=== PATIENT | male | born 1940 | race Caucasian/White ===

== ENCOUNTER 2017-04-25 08:42 | Outpatient (CLI) | payer MEDICARE ==
--- NOTE | 2017-04-25 10:11 | CT ---
CT PULMONARY LUNG SCAN: Indication: 77-year-old male for yearly lung cancer screening evaluation. The patient is currently sm oking. Comparison: 12-06-15 FINDINGS: Nodule within the right middle lobe demonstrates density similar to that of bone, suspicious for a sm all calcified granuloma. The 5 mm pulmonary nodule within the region of the lingula is relatively sta ble. The scattered central lobular and paraseptal emphysema is similar. No new pulmonary nodules iden tified. Visualized upper abdomen is unremarkable. There is mild thoracic scoliosis and scattered dege nerative change. IMPRESSION: 1. Lung rads category 2 - benign. 2. Recommend annual low dose screening CT in one year. POS: [facility]
== END 2017-04-25 08:43 | disposition home or self-care (01) ==
LOC: CT 08:42
PROVIDERS: ATTEND Family Medicine
DX: F17.210 Nicotine dependence, cigarettes, uncomplicated (principal)
CPT/HCPCS: G0297

== ENCOUNTER 2018-01-21 12:01 | Outpatient (CLI) | payer MEDICARE ==
--- NOTE | 2018-01-21 16:13 | MRI ---
NONCONTRAST MRI LUMBAR SPINE: 01/21/2018 HISTORY: Lumbar radiculopathy. The patient complaints of low back pain with pain radiating to the left leg an d foot, with numbness and tingling. Symptoms have been present for one month. FINDINGS: There is an exophytic, 2.9 cm, increased T2 weighted signal intensity lesion at the medial aspect of the superior pole left kidney, which may represent a renal cyst, that cannot be further characterized on this exam. Further evaluation with renal sonogram is recommended. The conus medullaris is normal in appearance, terminating at the L1-L2 level. A few increased T1 and T2 weighted signal intensity foci are seen within the lower thoracic and lumba r vertebral bodies, which are nonspecific but are likely related to either focal areas of fat and/or hemangiomas. L1-L2: There is a mild disk bulge without significant narrowing of the central spinal canal. The ne ural foramina are patent. L2-L3: There is a mild broad-based disk osteophyte complex. This results in mild effacement of the ventral aspect of the thecal sac. The neural foramina are patent at this level. L3-L4: There is a broad-based disk osteophyte complex with mild facet degenerative changes. This re sults in mild effacement of the ventral aspect of the thecal sac. There is only minimal encroachment on each neural foramen. L4-L5; There is a mild broad-based disk osteophyte complex and facet hypertrophic changes. There is mild ligamentous thickening. There is effacement of the ventral aspect of the thecal sac. There is mild bilateral neural foraminal narrowing. Findings are greater on the left. L5-S1: There is loss of intervertebral disk height. There is a broad-based disk osteophyte complex and facet hypertrophic changes. There is soft tissue signal intensity seen posterior to the left asp ect of the L5 vertebral body, which measures 14 mm craniocaudal x 9 mm AP x 10 mm transverse. This m ay represent an extrusion of disk material superiorly from the L5-S1 level, although sequestered disk fragment is a possibility. This does likely result in mild mass effect and posterior displacement o f the traversing left L5 nerve root, just prior to the nerve entering the neural foramen. There is n o significant narrowing of the central spinal canal. There is mild to moderate bilateral neural fora elvira narrowing present. Moderate facet hypertrophic changes are noted. IMPRESSION: 1. Left paracentral disk extrusion versus sequestered disk fragments seen posterior to the L5 verteb ral body, just to the left of midline. Sequestered disk fragment is favored. This does appear to con tact and result in mild posterior displacement and mild mass effect on the traversing left L5 nerve r oot, just prior to the nerve root entering the neural foramen. Correlation for a left L5 radiculopat hy is suggested. 2. Mild degenerative changes seen throughout the lumbar spine, as described above. 3. Cystic lesion, superior pole, left kidney, which may represent a renal cyst, but further evaluati on with a renal sonogram is recommended. POS: [facility]
== END 2018-01-21 12:02 | disposition home or self-care (01) ==
LOC: SCSMRI 12:01
PROVIDERS: ATTEND Family Medicine
DX: M47.26 Other spondylosis with radiculopathy, lumbar region (principal); M51.16 Intervertebral disc disorders with radiculopathy, lumbar region; N28.9 Disorder of kidney and ureter, unspecified
CPT/HCPCS: 72148

== ENCOUNTER 2018-01-30 09:43 | Outpatient (CLI) | payer MEDICARE ==
--- NOTE | 2018-01-30 11:21 | ULT ---
BILATERAL RENAL ULTRASOUND COMPLETE: History: Follow up MRI for cyst left kidney. FINDINGS: The right kidney measures 11.7 x 4.8 x 6.5 cm. The left kidney measures 10.9 x 5.8 x 5.7 cm. There is coarse increased liver echogenicity consistent with nonspecific hepatic parenchymal process. There is some diffuse renal cortical thinning of the right kidney. No renal hydronephrosis. Urinary bladder is unremarkable. At least two left renal cysts, the largest measures approximately 2.7 cm. No acute perinephric process. IMPRESSION: At least two left renal cysts. No renal hydronephrosis or perinephric process. Coarse liver echogenic ity, evidence for nonspecific diffuse hepatic parenchymal process. Some generalized renal cortical th inning, slightly worse on the right side. Unremarkable but nearly empty bladder. POS: [facility]
== END 2018-01-30 09:44 | disposition home or self-care (01) ==
LOC: SCSULT 09:43
PROVIDERS: ATTEND Family Medicine
DX: N28.89 Other specified disorders of kidney and ureter (principal); N28.1 Cyst of kidney, acquired; K76.9 Liver disease, unspecified
CPT/HCPCS: 76770

== ENCOUNTER 2018-04-05 10:33 | Outpatient (CLI) | payer MEDICARE ==
--- NOTE | 2018-04-05 12:57 | RAD ---
RADIOGRAPH LUMBAR SPINE 4 VIEWS: DATE: 04/05/2018. HISTORY: A 78-year-old male with M54.16 lumbar radiculopathy. COMPARISON: No prior plain radiograph of lumbar spine. TECHNIQUE: AP view. Three lateral views in flexion, extension, and neutral. FINDINGS: There are 5 lumbar-type vertebrae. Minimal left-convex lateral curvature with apex at L3. No high-g rade scoliosis. Vertebral body heights are maintained. No major spondylolisthesis. At least modera te facet DJD at L4-5 and L5-S1. Mild disk space narrowing at L5-S1. No instability between flexion and extension. Prominent end plate marginal osteophytes at several levels. IMPRESSION: 1. Mild disk space narrowing at L5-S1. 2. No instability. JN [] POS: [facility]
== END 2018-04-05 10:34 | disposition home or self-care (01) ==
LOC: TBSIIMAG 10:33
PROVIDERS: ATTEND Surgery
DX: M54.16 Radiculopathy, lumbar region (principal); M51.37 Other intervertebral disc degeneration, lumbosacral region
CPT/HCPCS: 72110

== ENCOUNTER 2018-06-18 14:12 | Outpatient (CLI) | payer MEDICARE ==
--- NOTE | 2018-06-18 18:25 | MRI ---
MRI OF LEFT SHOULDER PERFORMED WITHOUT CONTRAST ENHANCEMENT: 06/18/18 HISTORY: Left shoulder pain for months. Patient had difficulty holding still for this examination. There are some moderate AC joint hypertrophic changes present. There is a lower grade undersurface te ar involving the infraspinatus tendon. The supraspinatus tendon is very thin in appearance. There is a moderate grade supraspinatus tendon tear. This involves more of the anterior aspect of the tendon. It involves greater than 50% of the thickness of the tendon over an approximately 7 mm segment. Ther e is undersurface retraction of some of the fibers but the bursal sided fibers remain intact. The subscapularis tendon also shows a very thin appearance to the superior aspect of the tendon with a partial undersurface tear. The biceps tendon shows tendinopathy changes of the intra-articular port ions of biceps tendon and there may be a split tear present. Very difficult to assess due to motion a rtifact. The biceps tendon does lie in a normal position within the bicipital groove. There is an irregular ap pearance to the superior labrum directly posterior to the biceps anchor consistent with a superior la bral tear. This appears to extend into the posterior superior labrum and the tear does extend into th e posterior inferior labrum where it is more evident as a tear extending all the way to the inferior labrum with a tiny paralabral cyst formation. There are arthritic changes of the glenohumeral joint space. There is no significant rotator cuff muscle atrophy present. IMPRESSION: 1. Low grade undersurface tear of the infraspinatus tendon. 2. Higher grade tear of the undersurface of the supraspinatus tendon specifically at the anterio r most attachment at the tendon. The undersurface component of the tear is greater than 50% in AP dim ension. This extends over an approximately 7 to 8 mm segment. 3. Partial undersurface tear of the subscapularis tendon, but the biceps tendon remains in josé l position. The intra-articular portion of the biceps is very tendinotic and there could be a split t ear present. There is a labral tear which begins just directly posterior to the biceps anchor and ext ends into the inferior labrum. POS: [facility]
== END 2018-06-18 14:13 | disposition home or self-care (01) ==
LOC: SCSMRI 14:12
PROVIDERS: ATTEND Orthopaedic Surgery
DX: M25.512 Pain in left shoulder (principal); M75.102 Unspecified rotator cuff tear or rupture of left shoulder, not specified as traumatic; S46.912A Strain of unspecified muscle, fascia and tendon at shoulder and upper arm level, left arm, initial encounter

== ENCOUNTER → 2018-07-11 | Day surgery (SDC) | payer MEDICARE ==
[~2018-07-11] MED LIST: ADMIXTURE FEE IVPB SCH; OCTAGAM IVPB SCH; Sodium Chloride 0.9% 20 ML ONE; diphenhydrAMINE 50 MG/ML VIAL IVP SCH
[2018-07-11 10:37] VITALS: BP 127/61; TEMP 98.5
[2018-07-11 11:31] LABS: Anion Gap 12 mmol/L (10-20); BUN (Urea Nitrogen) 26 mg/dL (8.4-25.7); Calc. Creatinine Clearance 61 mL/min (70-130); Calcium 9.7 mg/dL (7.8-10.44); Carbon Dioxide 29 mmol/L (23-31); Chloride 101 mmol/L (98-107); Estimated GFR-MDRD 42; Glucose 120 mg/dL (83-110); Potassium 4.3 mmol/L (3.5-5.1); Sodium 138 mmol/L (136-145)
== END ==
LOC: ONC/OP 09:37
PROVIDERS: ATTEND Psychiatry & Neurology Neurology
DX: G70.00 Myasthenia gravis without (acute) exacerbation (principal); Z88.1 Allergy status to other antibiotic agents
CPT/HCPCS: 80048; J1200; J1568

== ENCOUNTER 2018-07-12 10:03 | Day surgery (SDC) | payer MEDICARE ==
[~2018-07-12 10:03] MED LIST changes: -Sodium Chloride 0.9% 20 ML ONE
[2018-07-12 10:27] VITALS: BP 123/59; TEMP 98.8
[2018-07-12] MEDS ORDERED: Sodium Chloride 0.9% 30 ML ONE (10:28)
== END 2018-07-12 13:45 | disposition home or self-care (01) ==
LOC: ONC/OP 10:03
PROVIDERS: ATTEND Psychiatry & Neurology Neurology
DX: G70.00 Myasthenia gravis without (acute) exacerbation (principal); Z88.1 Allergy status to other antibiotic agents
CPT/HCPCS: 96365; 96366; 96375; J1200; J1568

== ENCOUNTER 2018-07-17 11:48 | Outpatient (CLI) | payer MEDICARE | END 2018-07-17 11:49 | disposition home or self-care (01) | LOC: CP 11:48 | PROVIDERS: ATTEND Psychiatry & Neurology Neurology | DX: G70.00 Myasthenia gravis without (acute) exacerbation (principal) | CPT/HCPCS: 94010 ==

== ENCOUNTER 2018-07-23 09:42 | Outpatient (CLI) | payer MEDICARE ==
--- NOTE | 2018-07-23 10:28 | RAD ---
CHEST TWO VIEWS: 07/23/2018 HISTORY: Dyspnea. TECHNIQUE: PA and lateral views of the chest obtained. FINDINGS: Two views of the chest demonstrate ectasia of the aorta. The lungs are well aerated. No evidence of active intrathoracic disease is seen. No evidence of effusions, pneumonia, or pneumothorax is seen. IMPRESSION: Unremarkable two views chest. POS: [facility]
== END 2018-07-23 09:43 | disposition home or self-care (01) ==
LOC: RAD 09:42
PROVIDERS: ATTEND Internal Medicine Critical Care Medicine
DX: R06.00 Dyspnea, unspecified (principal)
CPT/HCPCS: 71046

== ENCOUNTER 2018-08-05 05:48 | Day surgery (SDC) | payer MEDICARE ==
[2018-08-02 10:33] VITALS: BMI 31.8
[2018-08-05 08:29] LABS: #Eosinphils 0.1 thou/uL (0.0-0.7); #Lymphocytes 2.4 thou/uL (1.20-3.40); #Monocytes 0.9 thou/uL (0.11-0.59); #Neutrophils 5.3 thou/uL (1.40-6.50); %Basophils 0.1 % (0.0-1.0); %Eosinophils 1.1 % (0.0-10.0); %Lymphocytes 27.6 % (21.0-51.0); %Monocytes 10.3 % (0.0-10.0); %Neutrophils 60.8 % (42.0-75.0); Hemoglobin 12.2 g/dL (14.0-18.0); Mean Corpuscular HGB CONC 33.9 g/dL (32.0-36.0); Mean Corpuscular Hemoglobin 31.8 pg (27.0-31.0); Mean Corpuscular Volume 93.9 fL (78.0-98.0); Mean Platelet Volume 7.3 fL (7.4-10.4); Platelet Count 186 thou/uL (130-400); RBC Distribution Width 14.1 % (11.5-14.5); Red Blood Cell (RBC) Count 3.82 mill/uL (4.70-6.10); White Blood Cell (WBC) Count 8.8 thou/uL (4.8-10.8)
[2018-08-05 08:34] LABS: PTT 26.4 SEC (22.9-36.1); Prothrombin Time 13.4 SEC (12.0-14.7)
[2018-08-05 08:43] LABS: ALT (SGPT) 28 U/L (8-55); AST (SGOT) 20 U/L (5-34); Albumin 3.4 g/dL (3.4-4.8); Alkaline Phosphatase 44 U/L (40-150); Anion Gap 10 mmol/L (10-20); BUN (Urea Nitrogen) 28 mg/dL (8.4-25.7); Bilirubin, Total 0.7 mg/dL (0.2-1.2); Calc. Creatinine Clearance 84 mL/min (70-130); Calcium 8.8 mg/dL (7.8-10.44); Carbon Dioxide 30 mmol/L (23-31); Cardiac Risk 2.7 (Less than 4.5); Chloride 105 mmol/L (98-107); Cholesterol 150 mg/dl (< 200 Desired); Estimated GFR-MDRD 62; Globulin 2.9 g/dL (2.4-3.5); Glucose 101 mg/dL (83-110); HDL Cholesterol 55 mg/dL (>60 Neg Risk); LDL Cholesterol, Calculated 66 mg/dL; Potassium 3.7 mmol/L (3.5-5.1); Protein, Total 6.3 g/dL (5.8-8.1); Sodium 141 mmol/L (136-145); Triglycerides 145 mg/dL (Less than 150)
[2018-08-05] MEDS ORDERED: Iopamidol 370 76% 100 ML VIAL ONE (10:54)
[2018-08-05] MEDS ORDERED: Heparin 10,000 UNITS/1 ML VIAL ONE (12:31)
[2018-08-05] MEDS ORDERED: Verapamil 5 MG/2 ML VIAL ONE (12:31)
[2018-08-05] MEDS ORDERED: Nitroglycerin 100MG/250ML BOT 250 ML ONE (12:31)
--- NOTE | 2018-08-06 21:03 | EKG ---
Test Reason : PREOP Blood Pressure : / mmHG Vent. Rate : 060 BPM Atrial Rate : 060 BPM P-R Int : 192 ms QRS Dur : 122 ms QT Int : 430 ms P-R-T Axes : 020 -48 005 degrees QTc Int : 430 ms Sinus rhythm with Premature atrial complexes Left anterior fascicular block Left ventricular hypertrophy with QRS widening Abnormal ECG No previous ECGs available Confirmed by XIOMY FRANKS, DR. Arroyo ([id number]) on 08/06/2018 9:02:56 PM Referred By: MONI Confirmed By:DR. Dina STAUFFER MD
== END 2018-08-05 16:45 | disposition home or self-care (01) ==
LOC: CCL 05:48
PROVIDERS: ATTEND Internal Medicine Cardiovascular Disease
PROC: 4A023N7 Measurement of Cardiac Sampling and Pressure, Left Heart, Percutaneous Approach (ICD-10-PCS; principal; 2018-08-05)
PROC: B2111ZZ Fluoroscopy of Multiple Coronary Arteries using Low Osmolar Contrast (ICD-10-PCS; 2018-08-05)
DX: I25.10 Atherosclerotic heart disease of native coronary artery without angina pectoris (principal); I25.82 Chronic total occlusion of coronary artery; I10 Essential (primary) hypertension; E78.2 Mixed hyperlipidemia; G47.33 Obstructive sleep apnea (adult) (pediatric); G70.00 Myasthenia gravis without (acute) exacerbation; I73.9 Peripheral vascular disease, unspecified; Z87.891 Personal history of nicotine dependence; Z79.52 Long term (current) use of systemic steroids; Z79.82 Long term (current) use of aspirin; Z79.899 Other long term (current) drug therapy; Z88.1 Allergy status to other antibiotic agents
CPT/HCPCS: 36415; 80053; 80061; 85025; 85610; 85730; 93005; 93010; 93454; C1769; J1644; Q9967

== ENCOUNTER → 2018-08-12 | Day surgery (SDC) | payer MEDICARE ==
[~2018-08-12] MED LIST changes: +OCTAGAM 10% 80 GM in Admixture Fee 1 EACH IVPB SCH; +Privigen 10 GM in Admixture Fee 1 EACH IVPB SCH; +diphenhydrAMINE 25 MG in Sodium Chloride 0.9% 50 ML IVPB SCH
[2018-08-12 11:13] LABS: Anion Gap 13 mmol/L (10-20); BUN (Urea Nitrogen) 28 mg/dL (8.4-25.7); Calc. Creatinine Clearance 0 mL/min (70-130); Calcium 9.4 mg/dL (7.8-10.44); Carbon Dioxide 28 mmol/L (23-31); Chloride 102 mmol/L (98-107); Estimated GFR-MDRD 39; Glucose 109 mg/dL (83-110); Sodium 139 mmol/L (136-145)
[2018-08-12 13:42] VITALS: BP 113/55; TEMP 98.2
== END ==
LOC: ONC/OP 09:41
PROVIDERS: ATTEND Psychiatry & Neurology Neurology
DX: G70.00 Myasthenia gravis without (acute) exacerbation (principal); Z88.1 Allergy status to other antibiotic agents; Z79.52 Long term (current) use of systemic steroids; Z79.82 Long term (current) use of aspirin; Z79.899 Other long term (current) drug therapy
CPT/HCPCS: 80048; 96365; 96366; 96375; J1200; J1459; J1568; J7050

== ENCOUNTER 2018-09-12 12:39 | Inpatient (IN) | payer MEDICARE ==
[2018-09-12] MEDS ORDERED: Bacitracin Zinc Ointment 30 gm TUBE ONE (13:31)
[2018-09-12] MEDS ORDERED: Sodium Chloride 0.9% 10 ML ONE (13:31)
[2018-09-12] MEDS ORDERED: Thrombin 5000 UNITS/5 ML VIAL ONE (13:31)
[2018-09-12 13:53] LABS: #Basophils 0.1 thou/uL (0.0-0.2); #Eosinphils 0.1 thou/uL (0.0-0.7); #Lymphocytes 2.8 thou/uL (1.20-3.40); #Monocytes 0.6 thou/uL (0.11-0.59); #Neutrophils 7.4 thou/uL (1.40-6.50); %Basophils 0.9 % (0.0-1.0); %Eosinophils 0.5 % (0.0-10.0); %Lymphocytes 25.5 % (21.0-51.0); %Monocytes 5.2 % (0.0-10.0); %Neutrophils 67.9 % (42.0-75.0); Mean Corpuscular HGB CONC 33.7 g/dL (32.0-36.0); Mean Corpuscular Hemoglobin 32.4 pg (27.0-31.0); Mean Corpuscular Volume 96.1 fL (78.0-98.0); Mean Platelet Volume 8.3 fL (7.4-10.4); Platelet Count 218 thou/uL (130-400); RBC Distribution Width 13.7 % (11.5-14.5); Red Blood Cell (RBC) Count 4.02 mill/uL (4.70-6.10)
[2018-09-12 14:05] LABS: PTT 27.4 SEC (22.9-36.1); Prothrombin Time 13.3 SEC (12.0-14.7)
[2018-09-12 14:18] LABS: Anion Gap 16 mmol/L (10-20); BUN (Urea Nitrogen) 27 mg/dL (8.4-25.7); Calc. Creatinine Clearance 53 mL/min (70-130); Calcium 9.5 mg/dL (7.8-10.44); Carbon Dioxide 25 mmol/L (23-31); Chloride 100 mmol/L (98-107); Estimated GFR-MDRD 36; Glucose 112 mg/dL (83-110); Potassium 4.9 mmol/L (3.5-5.1); Sodium 136 mmol/L (136-145)
[2018-09-12] MEDS ORDERED: SUGAMMADEX SODIUM 500 MG/5 ML VIAL ONE (14:42)
[2018-09-12] MEDS ORDERED: Dexamethasone 20 MG/5 ML VIAL ONE (14:45)
[2018-09-12] MEDS ORDERED: ePHEDrine 50 MG/ML VIAL ONE (14:45)
[2018-09-12] MEDS ORDERED: Rocuronium Bromide 10 MG/ML (10ML VIAL) ONE (14:45)
[2018-09-12] MEDS ORDERED: PROPOFOL 200 MG/20 ML VIAL ONE (14:45)
[2018-09-12] MEDS ORDERED: Ondansetron PF 4 MG/2 ML Vial ONE (14:45)
[2018-09-12] MEDS ORDERED: PHENYLEPHRINE-NS 100 MCG/ML 10 ML SYRINGE ONE (14:45)
[2018-09-12] MEDS ORDERED: Lidocaine 1% PF 5 ML VIAL ONE (14:45)
[2018-09-12] MEDS ORDERED: Fentanyl 100 MCG/2 ML VIAL ONE ×2 (14:54→17:33)
[2018-09-12] MEDS ORDERED: ePHEDrine/0.9% NaCl/PF SYRINGE 50 mg/10 ml ONE (15:28)
[2018-09-12] MEDS ORDERED: PACU-Morphine 4MG/ML VIAL SLOW IVP PRN (16:54)
[2018-09-12] MEDS ORDERED: Morphine Sulfate 2 MG/ML SYRINGE SLOW IVP PRN (16:54)
[2018-09-12] MEDS ORDERED: Promethazine HCl 25 MG/ML VIAL IM PRN (16:54)
[2018-09-12] MEDS ORDERED: HYDROmorphone 2 MG/ML VIAL SLOW IVP PRN (16:54)
[2018-09-12] MEDS ORDERED: Promethazine HCl 25 MG/ML VIAL SLOW IVP PRN (16:54)
[2018-09-12] MEDS ORDERED: Ondansetron HCl/PF 4 MG/2 ML Vial IVP PRN (16:54)
[2018-09-12] MEDS ORDERED: Acetaminophen 325 MG TAB PO PRN (17:59)
[2018-09-12] MEDS ORDERED: Bisacodyl 10 MG SUPP PR PRN (17:59)
[2018-09-12] MEDS ORDERED: traMADol HCl 50 MG TAB PO PRN (17:59)
[2018-09-12] MEDS ORDERED: Mag-Al 1200 mg/1200 mg/30 ML UDCUP PO PRN (17:59)
[2018-09-12] MEDS ORDERED: Milk Of Magnesia 30 ML UDCUP PO PRN (17:59)
[2018-09-12] MEDS ORDERED: Acetaminophen/Codeine 30-300mg Tablet PO PRN (17:59)
[2018-09-12] MEDS ORDERED: Morphine 2 MG/ML SYRINGE SLOW IVP PRN (17:59)
[2018-09-12] MEDS ORDERED: Fleet Enema 133 ML BOT PR PRN (17:59)
[2018-09-12] MEDS ORDERED: Baclofen 10 MG TAB PO PRN (18:02)
[2018-09-12] MEDS ORDERED: Amlodipine 5 MG TAB PO PRN (18:02)
[2018-09-12 20:27] VITALS: BMI 31.6
[2018-09-12] MEDS: Atorvastatin Calcium 20 MG TAB PO SCH (21:45)
[2018-09-12] MEDS: Sodium Chloride 0.9% 1,000 ML IV SCH (21:45)
[2018-09-12] MEDS: CEFAZOLIN 2 GM in Premix Bag 1 BAG IVPB SCH (21:45)
[2018-09-12] MEDS: Gabapentin 300 MG CAP PO SCH (21:45)
--- NOTE | 2018-09-13 00:59 | HP ---
PRIMARY CARE DOCTOR: Dr. Danna Whitlock. CODE STATUS: Full code. TIME OF EVALUATION: 09:55 p.m. This is a consultation requested by Neurosurgery for medical management. CHIEF COMPLAINT: Lower extremity pain. HISTORY OF PRESENT ILLNESS: This is a 78-year-old male patient with past medical history of multiple comorbidities, including hyperlipidemia, hypertension, PVD, COTY, chronic venous insufficiency, myasthenia gravis. The patient came to the hospital for surgery due to spinal stenosis and radiculopathy. The patient had surgery today at 2:00 p.m. Seems like has tolerated surgery without complications and is resting comfortable during my examination. We have been consulted for assisting with medical management. As noted, the patient has history of myasthenia gravis and is on prednisone 10 mg daily. REVIEW OF SYSTEMS: CONSTITUTIONAL: No fever, chills, or generalized weakness. RESPIRATORY: No cough, sputum production, or shortness of breath. CARDIOVASCULAR: No chest pain or palpitations. GASTROINTESTINAL: No nausea, no vomiting, diarrhea, or abdominal pain. CENTRAL NERVOUS SYSTEM: The patient had laminectomy, is being able to mobilize, still having some lower back pain. No headache or feeling lightheaded. GENITOURINARY: No burning on urination. EXTREMITIES: No leg swelling. All other systems were reviewed and negative except for the findings mentioned above. PAST MEDICAL HISTORY: As mentioned in HPI. PAST SURGICAL HISTORY: Hemorrhoid removal, cataract removal, left GSV venous closure in 2011. FAMILY HISTORY: Mother with cardiovascular disease. Father with coronary artery disease. MEDICATIONS: 1. Prednisone. 2. Pantoprazole. 3. Azelastine. 4. Calcium carbonate. 5. Gabapentin. 6. Simvastatin. 7. Aspirin. 8. Pyridostigmine. 9. Hydrochlorothiazide. 10. Isosorbide mononitrate. 11. Lisinopril. 12. Hydralazine. 13. Amlodipine. 14. Citalopram. PHYSICAL EXAMINATION: VITAL SIGNS: On presentation, blood pressure 137/93 with MAP 107, heart rate 67, respiratory rate was 17, oxygen saturation was 95% and a PVC of 8. GENERAL APPEARANCE: The patient is alert, oriented, not in acute distress. HEENT: Reported some pain in head. Eyes, normal conjunctiva. Moist oral mucosa. Anicteric. No JVD. RESPIRATORY: Bilateral air entry. No rales. No wheezing. Symmetric expansion. CARDIOVASCULAR: Normal rate, regular rhythm. No murmurs. No gallop. No edema. ABDOMEN: Soft. Normal bowel sounds. MUSCULOSKELETAL: Baseline range of motion and strength. No tenderness. SKIN: Warm, intact. No pallor. No rash. No redness. Peripheral pulses are present. Capillary refill seems to be intact. NEUROLOGIC: No evidence of any new focal weakness. Baseline speech. Cranial nerves seem to intact. The patient seems to be recovering well from the low back surgery. PSYCHIATRIC: The patient is in good mood. No anxiety. Optimal judgment. LABORATORY DATA: Reviewed. The patient has white count 11, hemoglobin 13, MCV 96, platelet count 218. Coagulation; PT 13.3, INR 1.0, and PTT 27.4. Chemistry; sodium 136, potassium 4.9, chloride 100, carbon dioxide 25, anion gap 16, BUN 27, creatinine 1.84, GFR 36, glucose 112, calcium 9.5. ASSESSMENT AND PLAN: The patient will be placed in the hospital with following medical problems; 1. Laminectomy done today at 2:00 p.m. Surgery was done today, well tolerated. Neurosurgery is following this problem. 2. Acute kidney injury. The patient has elevation in BUN and creatinine. We will add some hydration. We will discontinue lisinopril for now. This will need to be reconciled in the morning for any further adjustment in treatment. If not improvement, would recommend getting consultation with Nephro. 3. Deep venous thrombosis prophylaxis, to be managed as per Surgery. 4. History of myasthenia gravis. Patient's home medications were reconciled. Continue prednisone for now. He is currently at 10 mg a day p.o. 5. History of hypertension. This is chronic, stable, lisinopril is on hold due to acute kidney injury. Please monitor and could add different medication if blood pressure becomes uncontrolled. Job ID: [id number]
[2018-09-13] MEDS: CEFAZOLIN 2 GM in Premix Bag 1 BAG IVPB SCH (06:08)
[2018-09-13] MEDS: Calcium Carbonate 600 MG TAB PO SCH (08:12)
[2018-09-13] MEDS: hydrALAZINE 25 MG TAB PO SCH (08:12)
[2018-09-13] MEDS: Pyridostigmine Bromide IR 60 MG TAB PO SCH (08:13)
[2018-09-13] MEDS: Hydrochlorothiazide 25 MG TAB PO SCH (08:13)
[2018-09-13] MEDS: Citalopram 20 MG TAB PO SCH (08:13)
[2018-09-13] MEDS: predniSONE 20 MG TAB PO SCH (08:13)
[2018-09-13] MEDS: Gabapentin 300 MG CAP PO SCH ×3 (08:13→21:01)
[2018-09-13] MEDS: HYDROcodone/Acetaminophen 7.5/325 mg Tablet PO PRN ×3 (08:15→20:59)
[2018-09-13] MEDS ORDERED: Lisinopril 20 MG TAB PO SCH (09:00)
[2018-09-13 09:59] LABS: Anion Gap 16 mmol/L (10-20); BUN (Urea Nitrogen) 24 mg/dL (8.4-25.7); Calc. Creatinine Clearance 62 mL/min (70-130); Calcium 9.1 mg/dL (7.8-10.44); Carbon Dioxide 25 mmol/L (23-31); Chloride 100 mmol/L (98-107); Estimated GFR-MDRD 44; Glucose 137 mg/dL (83-110); Potassium 3.8 mmol/L (3.5-5.1); Sodium 137 mmol/L (136-145)
--- NOTE | 2018-09-13 10:31 | PRG ---
DATE OF SERVICE: SUBJECTIVE: Mr. Wyman is postoperative day 1 from lumbar decompression and diskectomy with far-lateral approach as well. He has had resolution in his leg pain and is doing well with good strength. He has had no issues in the ICU related to his myasthenia gravis. We will plan for transfer to the floor and he lives at home with his who was not able to take care of him postoperatively, so we will get inpatient rehab to see him. Job ID: [id number]
--- NOTE | 2018-09-13 12:07 | PDOC.PN ---
- Subjective Encounter Start Date: 09/13/18 Encounter Start Time: 09:45 Mr Wyman was seen today in follow-up of medical management following Lumbar Laminectomy. He does not have any complaints. He denies chest pain or shortness of breath. - Objective MAR Reviewed: Yes Vital Signs & Weight: Vital Signs (12 hours) Temp Pulse Ox 09/13/18 07:37 96 09/13/18 04:00 98.2 F Weight Weight 240 lb 4.862 oz Most Recent Monitor Data Heart Rate from ECG 85 NIBP 130/89 NIBP BP-Mean 102 Respiration from ECG 17 SpO2 93 I&O: 09/12/18 09/13/18 09/14/18 06:59 06:59 06:59 Intake Total 1706 580 Output Total 500 800 Balance 1206 -220 Result Diagrams: 09/12/18 13:41 09/13/18 09:13 Phys Exam - Physical Examination HEENT: PERRLA Respiratory: no wheezing, no rales, no rhonchi Cardiovascular: RRR, no significant murmur, no rub Gastrointestinal: soft, non-tender, no distention, positive bowel sounds Musculoskeletal: pulses present, edema present trace edema Dx/Plan (1) Myasthenia gravis Code(s): G70.00 - MYASTHENIA GRAVIS WITHOUT (ACUTE) EXACERBATION Status: Acute (2) Hypertension Code(s): I10 - ESSENTIAL (PRIMARY) HYPERTENSION Status: Acute (3) S/P lumbar laminectomy Code(s): Z98.890 - OTHER SPECIFIED POSTPROCEDURAL STATES Status: Acute (4) Obstructive sleep apnea Code(s): G47.33 - OBSTRUCTIVE SLEEP APNEA (ADULT) (PEDIATRIC) Status: Acute - Plan * Myesthenia Gravis- stable- continue Prednisone and Pyridostigmine * HTN- blood pressure is stable * COTY- nocturnal CPAP as needed * Continue PT/OT as per NS.
--- NOTE | 2018-09-13 16:43 | OP ---
DATE OF PROCEDURE: 09/12/2018 OPERATING ROOM: OR 11. WOUND CLASSIFICATION: Type 1 wound. TRACTOR MECHANIC HELPER: Elijah Becerra PA-C PREPROCEDURE DIAGNOSIS: Low back and leg pain with lumbar disk extrusion with lumbar radiculopathy. POSTPROCEDURE DIAGNOSIS: Low back and leg pain with lumbar disk extrusion with lumbar radiculopathy. PROCEDURES PERFORMED: 1. Left L5-S1 hemilaminotomy, foraminotomy, and diskectomy. 2. Right L5-S1 trans-facet approach for decompression of the right L5 nerve root with right L5-S1 trans-facet diskectomy. 3. Use of operative microscope for microdissection. DESCRIPTION OF PROCEDURE: After informed consent was obtained from the patient, the patient was positioned prone. Proper patient, pause, and identification were carried out. He was placed under excellent general endotracheal anesthesia and the L5-S1 linear tiffani was made over this region. This area was sterilely cleansed, prepared, and draped. Proper patient, pause, and identification were carried out. The wound was then opened with a combination of sharp, monopolar, and blunt dissection. The L5-S1 dorsal spines and lamina were exposed. Left L5-S1 hemilaminotomy, foraminotomy, and diskectomy was then performed with use of the microscope for microdissection. We then turned our attention to identification of the right L5-S1 segment and a trans-facet approach was performed to allow for decompression of the lateral and far-lateral regions of the L5 nerve root with diskectomy. Copious irrigation occurred throughout as did maximizing hemostasis. The wound was then closed in anatomic layers following sprinkling of vancomycin powder. The patient emerged from anesthesia. Job ID: [id number]
[2018-09-13] MEDS ORDERED: Azelastine 137 MCG/Spray 30 ML NS PRN (17:20)
[2018-09-13] MEDS: Sodium Chloride 0.9% 1,000 ML IV SCH ×2 (18:02→23:18)
[2018-09-13] MEDS: Atorvastatin Calcium 20 MG TAB PO SCH (21:01)
[2018-09-14] MEDS: HYDROcodone/Acetaminophen 7.5/325 mg Tablet PO PRN ×4 (03:01→20:09)
[2018-09-14] MEDS: Gabapentin 300 MG CAP PO SCH ×3 (08:57→20:12)
[2018-09-14] MEDS: Calcium Carbonate 600 MG TAB PO SCH (08:58)
[2018-09-14] MEDS: Citalopram 20 MG TAB PO SCH (08:58)
[2018-09-14] MEDS: hydrALAZINE 25 MG TAB PO SCH (08:58)
[2018-09-14] MEDS: predniSONE 20 MG TAB PO SCH (08:59)
[2018-09-14] MEDS: Hydrochlorothiazide 25 MG TAB PO SCH (08:59)
[2018-09-14] MEDS: Pyridostigmine Bromide IR 60 MG TAB PO SCH (09:19)
[2018-09-14] MEDS: Sodium Chloride 0.9% 1,000 ML IV SCH (10:49)
--- NOTE | 2018-09-14 12:03 | PRG ---
DATE OF SERVICE: 09/14/2018 Mr. Wyman is a 78-year-old. He is on his second postoperative day following lumbar laminectomy with Dr. Cali. The initial plan inpatient rehab given his myasthenic symptoms. However, this morning, he states as his does that they are both motivated to get him home to have adequate home setup for reducing difficulties in his postoperative state. He has minimal pain at the moment and just been somewhat slow to mobilize. On the first day yesterday, though he walks 200 feet and the plan today is to try to mobilize the laps around the surgical floor to see if he can tolerate this well and potentially discharge home as early as today with home health services providing PT. Also discussed possibility of staying one more night for the purpose of continued to improve mobility and discharging tomorrow and uncomfortable with either of those plans . Job ID: [id number]
--- NOTE | 2018-09-14 15:42 | PDOC.PN ---
- Subjective Encounter Start Date: 09/14/18 Encounter Start Time: 11:45 Mr. Wyman was seen today in follow-up of medical management following Lumbar Laminectomy. He does not have any complaints. He has been up walking without difficulty. - Objective MAR Reviewed: Yes Vital Signs & Weight: Vital Signs (12 hours) Temp Pulse Resp BP BP Pulse Ox 09/14/18 08:58 80 112/71 09/14/18 08:15 98.3 F 80 14 112/71 95 09/14/18 07:20 98.3 F 80 14 112/71 95 09/14/18 04:36 97.9 F 68 18 132/73 96 Weight Weight 240 lb 4.862 oz Most Recent Monitor Data Heart Rate from ECG 85 NIBP 130/89 NIBP BP-Mean 102 Respiration from ECG 17 SpO2 93 I&O: 09/13/18 09/14/18 09/15/18 06:59 06:59 06:59 Intake Total 1706 1480 Output Total 500 800 Balance 1206 680 Result Diagrams: 09/12/18 13:41 09/13/18 09:13 Phys Exam - Physical Examination HEENT: PERRLA Respiratory: no wheezing, no rales, no rhonchi, clear to auscultation bilateral Cardiovascular: RRR, no significant murmur, no rub Gastrointestinal: soft, non-tender, no distention, positive bowel sounds Musculoskeletal: no edema, pulses present Dx/Plan (1) Myasthenia gravis Code(s): G70.00 - MYASTHENIA GRAVIS WITHOUT (ACUTE) EXACERBATION Status: Acute (2) Hypertension Code(s): I10 - ESSENTIAL (PRIMARY) HYPERTENSION Status: Acute (3) S/P lumbar laminectomy Code(s): Z98.890 - OTHER SPECIFIED POSTPROCEDURAL STATES Status: Acute (4) Obstructive sleep apnea Code(s): G47.33 - OBSTRUCTIVE SLEEP APNEA (ADULT) (PEDIATRIC) Status: Acute - Plan * Myesthenia gravis- stable * HTN- blood pressure- stable * CAD- stable * Continue PT/OT * possible home tomorrow.
[2018-09-14] MEDS: Atorvastatin Calcium 20 MG TAB PO SCH (20:11)
--- NOTE | 2018-09-14 21:19 | PRG ---
DATE OF SERVICE: 09/14/2018 SUBJECTIVE: Mr. Wyman is hospital day 2 from lumbar decompression and diskectomy. He is doing well. He has been mobilizing in the hallways, in fact I found him in the hallways walking with a walker upon my visit. His incision is clean, dry, and intact. They have plans to discharge home tomorrow morning with home health in lieu of going to rehab. Job ID: [id number]
[2018-09-15] MEDS: Sodium Chloride 0.9% 1,000 ML IV SCH ×2 (02:37→09:43)
[2018-09-15] MEDS: HYDROcodone/Acetaminophen 7.5/325 mg Tablet PO PRN (03:47)
[2018-09-15] MEDS ORDERED: hydrALAZINE 20 MG/ML VIAL SLOW IVP PRN (04:18)
--- NOTE | 2018-09-15 07:11 | PRG ---
DATE OF SERVICE: 09/15/2018 Mr. Wyman, this morning, is doing very well. He ambulated a great deal in the hallways yesterday and is ready to go home this morning. He has minimal complaints of back pain, but will need to just follow up with Dr. Cali as planned at his outpatient followup. Job ID: [id number]
[2018-09-15] MEDS: Gabapentin 300 MG CAP PO SCH (09:35)
[2018-09-15] MEDS: Citalopram 20 MG TAB PO SCH (09:35)
[2018-09-15] MEDS: Hydrochlorothiazide 25 MG TAB PO SCH (09:35)
[2018-09-15] MEDS: Calcium Carbonate 600 MG TAB PO SCH (09:37)
[2018-09-15] MEDS: predniSONE 20 MG TAB PO SCH (09:37)
[2018-09-15] MEDS: hydrALAZINE 25 MG TAB PO SCH (09:42)
[2018-09-15 11:54] VITALS: BP 124/72; TEMP 98.2
[2018-09-15] MEDS: Pyridostigmine Bromide IR 60 MG TAB PO SCH (12:54)
--- NOTE | 2018-09-15 22:52 | DIS ---
DATE OF ADMISSION: 09/12/2018 DATE OF DISCHARGE: 09/15/2018 PRIMARY CARE PHYSICIAN: Dr. Danna Whitlock. DISCHARGE DISPOSITION: Home. PRIMARY DISCHARGE DIAGNOSES: 1. Lumbar radiculopathy. 2. Status post lumbar laminectomy. 3. Myasthenia gravis. 4. Hyperlipidemia. 5. Hypertension. 6. Obstructive sleep apnea. 7. Peripheral vascular disease. DISCHARGE MEDICATIONS: 1. Simvastatin 40 mg at bedtime. 2. Pyridostigmine 60 mg twice a day. 3. Prednisone 20 mg daily. 4. Pantoprazole 40 mg daily. 5. Lisinopril 40 mg daily. 6. Imdur 30 mg daily. 7. Hydrochlorothiazide 25 mg daily. 8. Hydralazine 50 mg t.i.d. 9. Gabapentin 600 mg at bedtime and mg during the day. 10. Celexa 20 mg daily. 11. Calcium carbonate 600 mg daily. 12. Baclofen 10 mg as needed. 13. Azelastine nasal spray daily. 14. Aspirin 81 mg daily. 15. Norvasc 5 mg a day. PROCEDURES DONE: During the admission, the patient had a left L5-S1 hemilaminectomy, foraminotomy, and diskectomy and a right L5-S1 transfacet decompression. CODE STATUS: Full code. ALLERGIES: LEVAQUIN. HOSPITAL COURSE: Mr. Wyman is a pleasant 78-year-old gentleman who has a history of myasthenia gravis, hypertension, and hyperlipidemia, who had chronic low back pain which was not relieved with conservative measures. He was admitted by the Neurosurgery Service for an elective lumbar laminectomy. He underwent the procedure. He had an uneventful postoperative course. The Hospitalist Service was consulted for medical management. Again, he did not have any complaints during his hospital stay and was able to be discharged home with close outpatient followup. Job ID: [id number]
== END 2018-09-15 12:45 | disposition home or self-care (01) | DRG 519 ==
LOC: SDC 12:39 → CCU 17:59 → OBSVTOIN 17:59 → INTOOBSV 17:59 → SURG B 09-13 11:00
PROVIDERS: ADMIT Surgery; ATTEND Surgery
PROC: 0SB20ZZ Excision of Lumbar Vertebral Disc, Open Approach (ICD-10-PCS; principal; 2018-09-12)
PROC: 01NB0ZZ Release Lumbar Nerve, Open Approach (ICD-10-PCS; 2018-09-12)
DX: M51.16 Intervertebral disc disorders with radiculopathy, lumbar region (principal); N17.9 Acute kidney failure, unspecified; I87.2 Venous insufficiency (chronic) (peripheral); M48.061 Spinal stenosis, lumbar region without neurogenic claudication; E78.5 Hyperlipidemia, unspecified; I10 Essential (primary) hypertension; I73.9 Peripheral vascular disease, unspecified; I25.10 Atherosclerotic heart disease of native coronary artery without angina pectoris; G47.33 Obstructive sleep apnea (adult) (pediatric); G70.00 Myasthenia gravis without (acute) exacerbation; Z79.52 Long term (current) use of systemic steroids; Z79.82 Long term (current) use of aspirin; Z79.899 Other long term (current) drug therapy
CPT/HCPCS: 36415; 76000; 80048; 85025; 85610; 85730; J0131; J0360; J0690; J1100; J2001; J2405; J2704; J3010; J3370; J3490; J7512

== ENCOUNTER 2018-09-22 00:17 | Observation (INO) | payer MEDICARE ==
[2018-09-22] MEDS ORDERED: Furosemide 20 MG/2 ML VIAL ONE (01:03)
[2018-09-22 02:01] LABS: Thyroid Stimulating Hormone 2.4238 uIU/mL (0.35-4.94)
[2018-09-22 02:16] LABS: Troponin I 0.017 ng/mL (< 0.028)
[2018-09-22 03:04] VITALS: BMI 32.6
[2018-09-22 04:23] LABS: Free T4 (Free Thyroxine) 1.08 ng/dL (0.70-1.48)
[2018-09-22 05:32] LABS: Troponin I 0.018 ng/mL (< 0.028)
[2018-09-22 08:09] LABS: Troponin I 0.024 ng/mL (< 0.028)
[2018-09-22 11:08] LABS: #Eosinphils 0.1 thou/uL (0.0-0.7); #Lymphocytes 1.9 thou/uL (1.20-3.40); #Monocytes 0.7 thou/uL (0.11-0.59); #Neutrophils 4.8 thou/uL (1.40-6.50); %Basophils 0.3 % (0.0-1.0); %Eosinophils 1.6 % (0.0-10.0); %Lymphocytes 25.2 % (21.0-51.0); %Monocytes 9.5 % (0.0-10.0); %Neutrophils 63.3 % (42.0-75.0); Hemoglobin 11.3 g/dL (14.0-18.0); Mean Corpuscular HGB CONC 33.1 g/dL (32.0-36.0); Mean Corpuscular Hemoglobin 32.4 pg (27.0-31.0); Mean Corpuscular Volume 97.8 fL (78.0-98.0); Platelet Count 234 thou/uL (130-400); RBC Distribution Width 13.3 % (11.5-14.5); White Blood Cell (WBC) Count 7.7 thou/uL (4.8-10.8)
[2018-09-22 11:24] LABS: Lactic Acid 2.7 mmol/L (0.5-2.2)
[2018-09-22 11:28] LABS: ALT (SGPT) 19 U/L (8-55); AST (SGOT) 20 U/L (5-34); Albumin 3.8 g/dL (3.4-4.8); Alkaline Phosphatase 43 U/L (40-150); Anion Gap 15 mmol/L (10-20); BUN (Urea Nitrogen) 17 mg/dL (8.4-25.7); Bilirubin, Total 0.5 mg/dL (0.2-1.2); Calc. Creatinine Clearance 68 mL/min (70-130); Calcium 9.6 mg/dL (7.8-10.44); Carbon Dioxide 28 mmol/L (23-31); Chloride 99 mmol/L (98-107); Estimated GFR-MDRD 48; Globulin 2.6 g/dL (2.4-3.5); Glucose 136 mg/dL (83-110); Magnesium 1.8 mg/dL (1.6-2.6); Potassium 3.7 mmol/L (3.5-5.1); Protein, Total 6.4 g/dL (5.8-8.1); Sodium 138 mmol/L (136-145)
[2018-09-22] MEDS ORDERED: hydrALAZINE 20 MG/ML VIAL SLOW IVP PRN (11:52)
[2018-09-22] MEDS ORDERED: Mycophenolate 250 MG CAP PO SCH (12:00)
[2018-09-22] MEDS ORDERED: Amlodipine 5 MG TAB PO SCH (12:00)
[2018-09-22] MEDS ORDERED: Gabapentin 300 MG CAP PO SCH (12:00)
[2018-09-22] MEDS ORDERED: Pyridostigmine Bromide IR 60 MG TAB PO SCH (12:00)
[2018-09-22 13:22] LABS: Bilirubin Negative (Negative); Blood, Urine Negative (Negative); Clarity CLEAR (Clear); Glucose, Urine (Dipstick) Negative (Negative); Leukocyte Negative (Negative); Nitrite Negative (Negative); Protein, Urine (Dipstick) Negative (Neg-Trace); Specific Gravity, Urine 1.006 (1.002-1.036); Urobilinogen 0.2 mg/dL (0.2-1.0)
--- NOTE | 2018-09-22 14:05 | HP ---
This is ALEJO De Jesus dictating a report for Pranay Torrez MD. CHIEF COMPLAINT: Difficulty breathing, lasting 15 minutes, and hypertension. HISTORY OF PRESENT ILLNESS: Mr. Wyman is a pleasant 78-year-old man, who was transferred here from [place] after presenting with an episode of difficulty breathing, which the states lasted about 15 minutes. The patient was lying down and has been lying flat on his left side due to recent laminectomy on 09/15/2018. He states he suddenly felt like he could not catch his breath. Reports feeling overall puffy and swollen on his face and neck and attributes this to the chronic steroids he was most recently on and tapered off for his myasthenia gravis. He states his neck felt as if it was weighing down on him. His states he appeared purple in color, and once EMS arrived within 15 minutes, his breathing had improved. His blood pressure was elevated in the low 200 systolic; however, once breathing improved, his blood pressure was rechecked and was normal in the 160s systolic. His had called Dr. Willson, who is out of town, and spoke to Dr. Schwarz, who advised to monitor and seek medical attention if any worsening or recurring symptoms. The patient did go ahead and come in for assessment at [place] [facility]. He underwent imaging with a chest x-ray, which showed a right basilar opacity, concerning for pneumonia as well as cardiomegaly. He was felt to have normal pulmonary vasculature with no pneumothorax or pleural effusion. Laboratory studies were done, showing a mildly elevated white blood count of 11.2. His lactic acid was normal at 0.8. The BNP mildly elevated at 144. The D-dimer was elevated at 1.05, therefore, prompting a CT angiogram of the chest. This revealed no evidence of PE and scattered areas of volume loss terminating in the lower lungs. He had an exophytic left renal hypodensity, incompletely characterized as a cyst. Nonemergent renal ultrasound recommended. The patient was given antibiotics for pneumonia with Zosyn and vancomycin. He has remained afebrile and has been transferred to [place] for further management. At this present time, the patient states he is back at his normal baseline and has not had any further recurring episodes of shortness of breath. REVIEW OF SYSTEMS: He denies having any fevers, chills, or sweats. He denies having any headaches or dizziness. He does report having pain in his back, associated with the recent surgery. He has not had any redness, swelling, or drainage from the incision. No urinary symptoms. No bowel changes. No chest pain or palpitations. He has had lower extremity swelling, which his states has been ongoing and somewhat attributed to his chronic steroid use. He does have redness and puffiness around his face as well as increased neck girth, again per associated with chronic steroid use. The patient denies having any swelling of his tongue or difficulty swallowing. He has not had any rash or hives. No other complaints. PAST MEDICAL HISTORY: 1. Myasthenia gravis. 2. Actinic keratosis. 3. Allergic rhinitis. 4. Basal cell cancer of the arm, neck, and some of cheek. 5. Precancerous lesion to the left lateral tongue, previous excision. 6. Hypertension. 7. GERD. 8. Hyperlipidemia. 9. Seborrheic keratosis. 10. Diverticulosis. 11. Colon polyps. PAST SURGICAL HISTORY: 1. Bilateral cataracts. 2. Excision of several basal cell carcinomas. 3. Colostomy. 4. Hemorrhoid surgery. SOCIAL HISTORY: The patient denies any heavy alcohol use. He does smoke. Denies any illicit drug use. ALLERGIES: LEVAQUIN. CURRENT MEDICATIONS: 1. Tylenol No. 3. 2. Tizanidine. 3. CellCept. 4. Norvasc. 5. Zocor. 6. Mestinon. 7. Pantoprazole. 8. Lisinopril. 9. Imdur ER. 10. Hydrochlorothiazide. 11. Neurontin. 12. Calcium. 13. Aspirin. 14. Hydralazine. PHYSICAL EXAMINATION: GENERAL: The patient appears overweight, well developed, and in no acute distress. SKIN: No rash or jaundice. A well-healing incision in the lower lumbar spine with sutures in place. No surrounding erythema, swelling, discharge or bleeding. He does have puffiness with slight flushing of his face. Oropharynx is clear. No tongue swelling. He does have a white plaque on the left lateral tongue, recurrent, known precancerous lesion. HEENT: Normocephalic and atraumatic. Pupils are equal, round, and reactive to light. Sclerae are without icterus. Oropharynx, as mentioned notable for white plaque on the left lateral tongue without any bleeding. NECK: Supple. LUNGS: Clear to auscultation bilaterally without any wheezes, rales, or rhonchi. CARDIAC: Regular rate and rhythm. ABDOMEN: Obese, soft, nontender, and nondistended. Normoactive bowel sounds present. EXTREMITIES: Notable for +2 pitting edema in the lower legs. No calf pain or tenderness. NEUROLOGIC: Alert and oriented x3 INVESTIGATIONS: As mentioned above in HPI. IMPRESSION AND PLAN: Mr. Wyman is a pleasant 78-year-old man, who is being admitted for management of the followin. Shortness of breath. Brief episode, lasting 15 minutes, potentially associated with position and generous tissue of the neck, which he states often feels as if it is weighing him down when he is lying flat on his back ever since he underwent his spinal surgery. He does not seem to have any symptoms concerning for allergic reaction. However, we will continue to monitor as he has had changes with medications several days ago. Recently weaned off steroids and started on CellCept. Chest x-ray with findings concerning for possible pneumonia; however, this was not evident on CT chest. He is afebrile without a cough and normal white cell count. He does have a mildly elevated lactic acid, which we will continue to monitor. He received Zosyn and vancomycin in [place]; however, we will hold antibiotics for now. Troponins negative x3. Breathing episode could potentially be associated with his underlying myasthenia gravis. The patient awaiting review by Dr. Holcomb. 2. Lactic acidosis. Elevated lactic acid with all other laboratory studies unremarkable. We will monitor. Urinalysis requested. No signs of infection involving his wound. Continue to monitor. 3. Lower leg edema. The patient with mildly elevated BNP of 144. No evidence of pulmonary edema. Lungs clear. Hydrochlorothiazide reconciled. We will continue to monitor. Echo requested. 4. Chronic kidney disease. The patient seems to be at baseline. We will continue to monitor renal function. 5. Gastrointestinal prophylaxis. 6. Deep venous thrombosis prophylaxis with mechanical sequential compression devices. 7. Full code status. The surrogate decision maker is his , Emily Wyman. The patient's case was discussed with Dr. Torrez, who agrees with plan of care as described above. Job ID: [id number]
--- NOTE | 2018-09-22 20:35 | CON ---
DATE OF CONSULTATION: 09/22/2018 CONSULTING PHYSICIAN: Hospitalist Service. 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 He had recently underwent lumbar surgery by Dr. Cali last week. He was sitting at the house and has been having a feeling of choking due to the tissues of his neck, cutting off his airway when he puts his head in certain positions. He apparently had a brief episode of cyanosis. His reported that his color looked quite purple. EMS was called. At the time they arrived, reportedly his saturations were normal on room air. He was brought in and had a chest x-ray done, which suggested some right basilar infiltrate. A CT of the chest did not show any evidence of a pulmonary embolus. He is without any complaints of difficulty chewing or swallowing. Denies any weakness of the extremities. He has some intermittent double vision. PHYSICAL EXAMINATION: On exam, there is some intermittent exotropia noted in the right eye. Eyelid closure is good. Neck strength is quite strong. He has good peripheral strength in both arms and legs. Speech is clear. I do not think the myasthenia could explain brief cyanotic. We will have a pulmonary function test done to check his negative inspiratory flow. would like to see Dr. Molina in followup to have him weigh in on the event. Job ID: [id number]
[2018-09-22] MEDS: Lisinopril 20 MG TAB PO SCH (20:58)
[2018-09-22] MEDS: Gabapentin 300 MG CAP PO SCH (20:58)
[2018-09-22] MEDS: Mycophenolate 250 MG CAP PO SCH (20:58)
[2018-09-22] MEDS: Pyridostigmine Bromide IR 60 MG TAB PO SCH (20:58)
[2018-09-22] MEDS: Atorvastatin Calcium 20 MG TAB PO SCH (20:59)
[2018-09-22] MEDS ORDERED: tiZANidine HCl 4 MG TAB PO PRN (21:00)
[2018-09-22] MEDS: Acetaminophen/Codeine 30-300mg Tablet PO PRN (22:23)
[2018-09-23] MEDS: Amlodipine 5 MG TAB PO SCH (08:49)
[2018-09-23] MEDS: Aspirin 81 mg Enteric Coated Tablet PO SCH (08:50)
[2018-09-23] MEDS: Gabapentin 300 MG CAP PO SCH ×2 (08:51→21:02)
[2018-09-23] MEDS: Mycophenolate 250 MG CAP PO SCH ×2 (08:51→21:02)
[2018-09-23] MEDS: Hydrochlorothiazide 25 MG TAB PO SCH (08:51)
[2018-09-23] MEDS: Pyridostigmine Bromide IR 60 MG TAB PO SCH ×2 (08:52→21:03)
[2018-09-23] MEDS ORDERED: Furosemide 40 MG/4 ML VIAL SLOW IVP SCH (14:30)
--- NOTE | 2018-09-23 19:34 | PRG ---
DATE OF SERVICE: 09/23/2018 SUBJECTIVE: Mr. Wyman is a pleasant 78-year-old male with past medical history significant for coronary artery disease, hypertension, COPD with recent tobacco cessation in April, myasthenia gravis, and recent laminectomy of L5-S1, who presented to the hospital with complaints of shortness of breath. The patient's breathing has significantly improved. He denies any chest pain at this time. He states that his swelling of his lower extremities is also improved. He has no lower back pain. He denies any fever or chills at this time. He denies any cough. OBJECTIVE: VITAL SIGNS: Blood pressure 153/64, pulse is 60, and O2 saturation is 95% on room air. The patient's temperature is 98. GENERAL: The patient is a moderately obese male, resting comfortably in bed, in no acute distress. HEENT: Head is atraumatic and normocephalic. Mucous membranes are moist. NECK: Supple. Trachea is midline. The patient does have neck morphology consistent with likely obstructive sleep apnea. CV: S1 and S2. Regular rate and rhythm. No appreciable murmurs, rubs, or gallops. LUNGS: Regular respiratory rate and pattern. Clear to auscultation bilaterally. ABDOMEN: Positive bowel sounds. Obese and nontender. EXTREMITIES: A +1 edema bilaterally. NEUROLOGIC: Cranial nerves 2 through 12 are grossly intact. The patient is nonfocal. LABORATORY DATA: From yesterday, the patient's lactic acid was 2.7. Sodium 138, potassium 3.7, carbon dioxide 99, anion gap 17, and creatinine 1.44. White blood cell count 7.7, hemoglobin 11.3, and hematocrit 34.2. ASSESSMENT: 1. Shortness of breath, unknown etiology, possible volume overload, however, initial BNP was only 144, possibly secondary to hypertensive urgency, presenting symptoms improved. 2. Chronic obstructive pulmonary disease. 3. Myasthenia gravis without acute flare. 4. Recent laminectomy of L5-S1. 5. Probable obstructive sleep apnea, untreated. 6. Chronic kidney disease, stable. PLAN: At this time, we are currently awaiting echo results. Trial of IV Lasix today, and we will monitor his kidney function and electrolytes closely. We will also repeat a lactic acid. We will also obtain negative inspiratory force/NIF by RT, which has been requested by Neurology and is also pending. If the patient's symptoms continue to improve, expect discharge in the near future. His CT scan showed no evidence of pneumonia and he did have some scattered area of volume loss terminating in the lower lungs. The patient is followed by Dr. Molina and appreciate Pulmonary input. The care of this patient has been discussed with Dr. Torrez, who agrees with the above. Job ID: [id number]
[2018-09-23] MEDS: Atorvastatin Calcium 20 MG TAB PO SCH (21:02)
[2018-09-23] MEDS: Lisinopril 20 MG TAB PO SCH (21:02)
[2018-09-23] MEDS: Acetaminophen/Codeine 30-300mg Tablet PO PRN (21:03)
--- NOTE | 2018-09-23 21:11 | CON ---
DATE OF CONSULTATION: 09/23/2018 SERVICE: Pulmonary Medicine. REASON FOR CONSULTATION: Respiratory failure. HISTORY OF PRESENT ILLNESS: The patient is a very pleasant 78-year-old white male, with past medical history significant for myasthenia gravis and chronic back pain. He was in his usual state of health, recovering from a recent surgery. Before the surgery, he was put on a course of steroids to prevent any type of myasthenic crisis from occurring during the procedure. He had his operation about 10 days ago. He stayed in the hospital for a period of 3 days. During that period of time, he was on IV fluids. He was subsequently discharged from the hospital about a week ago. He was doing well for about 3 or 4 days, but then started "not feeling very good." He really could not explain what that meant other than to say he had some internal sense of not being well. He specifically did not have any shortness of breath, chest pain, nausea, vomiting, or diarrhea. He denies having any fevers or chills. He had a little bit of a cough, but was not bringing any sputum up. He noticed increasing lower extremity swelling and abdominal swelling. He denies having any orthopnea. On the day he presented to the hospital, however, he had increasing shortness of breath and started turning purple. As such, his brought him in. He was given some diuretics, and overnight, his shortness of breath and sense of well-being have improved. PAST MEDICAL HISTORY: 1. Myasthenia gravis. 2. Hypertension. 3. Dyslipidemia. 4. Diverticulosis without evidence of diverticulitis. 5. Seborrheic keratoses. 6. Actinic keratoses. 7. Basal cell carcinoma of the lung. 8. Coronary artery disease, new diagnosis. PAST SURGICAL HISTORY: 1. Cataract surgeries, bilateral. 2. Excision of basal cell carcinomas. 3. Colostomy. 4. Hemorrhoid surgery. SOCIAL HISTORY: Negative for any alcohol, tobacco, or illicit drug use currently. FAMILY HISTORY: Noncontributory. ALLERGIES: LEVAQUIN. MEDICATIONS: List of the patient's inpatient medications was reviewed. I did not update these medications at this point. REVIEW OF SYSTEMS: General, head, ears, eyes, nose, throat, cardiovascular, respiratory, GI, , musculoskeletal, neurologic, and skin are negative except as mentioned in HPI. PHYSICAL EXAMINATION: VITAL SIGNS: Afebrile currently, with a T-max of 99.8. Pulse 51, blood pressure 160/92, respirations 16, saturations 94% on room air. GENERAL: The patient is awake and alert, in no apparent distress. LUNGS: There is decreased air entry, but I do not appreciate much of a prolonged expiratory phase. Crackles are present. No wheezing. HEART: Normal rate, regular. ABDOMEN: Soft, nontender, and nondistended. Bowel sounds are positive. MUSCULOSKELETAL: No cyanosis or clubbing. There is 2 to 3+ pitting in the bilateral lower extremities. NEUROLOGIC: Grossly nonfocal. LABORATORY DATA: Creatinine 1.44. Basic metabolic profile and liver function studies are otherwise unremarkable. Troponin is up trending at 0.024. TSH is 2.4, lactate 2.7. IMAGING: By report, original chest x-ray demonstrated possible evidence of pneumonia. That being said, subsequent CT scan did not show any pneumonia or pulmonary embolism. ASSESSMENT: 1. Volume overload state, possibly iatrogenic associated with recent back surgery, and acute kidney injury. 2. Acute kidney injury, downtrending compared to prior hospital stay. 3. Coronary artery disease, newly diagnosed. 4. Obstructive sleep apnea, suspected. 5. Myasthenia gravis. DISCUSSION AND PLAN: We will continue to diurese the patient down to euvolemia. Pulmonary will continue to follow if the patient remains inhouse. Dr. Molina will assume care in the morning as he has as an established relationship with Mr. Wyman. He is already being considered for a polysomnogram in the outpatient setting. 45 minutes have been devoted to this patient in various activities. I personally reviewed all imaging studies and laboratory data noted within this document. For fifty percent of this time, I was interacting with the patient at the bedside or coordinating care with the care team. For the remainder of the time I was immediately available to the patient in the hospital unit. Job ID: [id number] MTDD
[2018-09-24 05:34] LABS: #Basophils 0.1 thou/uL (0.0-0.2); #Eosinphils 0.3 thou/uL (0.0-0.7); #Lymphocytes 2.9 thou/uL (1.20-3.40); #Monocytes 0.9 thou/uL (0.11-0.59); #Neutrophils 4.2 thou/uL (1.40-6.50); %Basophils 0.8 % (0.0-1.0); %Eosinophils 3.5 % (0.0-10.0); %Lymphocytes 34.9 % (21.0-51.0); %Monocytes 10.9 % (0.0-10.0); Hemoglobin 11.1 g/dL (14.0-18.0); Mean Corpuscular HGB CONC 33.1 g/dL (32.0-36.0); Mean Corpuscular Hemoglobin 32.1 pg (27.0-31.0); Mean Corpuscular Volume 96.9 fL (78.0-98.0); Mean Platelet Volume 6.9 fL (7.4-10.4); Platelet Count 228 thou/uL (130-400); RBC Distribution Width 13.3 % (11.5-14.5); Red Blood Cell (RBC) Count 3.46 mill/uL (4.70-6.10); White Blood Cell (WBC) Count 8.4 thou/uL (4.8-10.8)
[2018-09-24 05:47] LABS: Lactic Acid 0.9 mmol/L (0.5-2.2)
[2018-09-24 05:50] LABS: Anion Gap 10 mmol/L (10-20); BUN (Urea Nitrogen) 16 mg/dL (8.4-25.7); Calc. Creatinine Clearance 77 mL/min (70-130); Calcium 9.3 mg/dL (7.8-10.44); Carbon Dioxide 30 mmol/L (23-31); Chloride 101 mmol/L (98-107); Estimated GFR-MDRD 57; Glucose 88 mg/dL (83-110); Potassium 3.4 mmol/L (3.5-5.1); Sodium 138 mmol/L (136-145)
[2018-09-24] MEDS: Pyridostigmine Bromide IR 60 MG TAB PO SCH (08:19)
[2018-09-24] MEDS: Gabapentin 300 MG CAP PO SCH (08:19)
[2018-09-24] MEDS: Mycophenolate 250 MG CAP PO SCH (08:19)
[2018-09-24] MEDS: Amlodipine 5 MG TAB PO SCH (08:20)
[2018-09-24] MEDS: Hydrochlorothiazide 25 MG TAB PO SCH (08:20)
[2018-09-24] MEDS: Aspirin 81 mg Enteric Coated Tablet PO SCH (08:21)
[2018-09-24 08:36] VITALS: BP 135/65; TEMP 97.2
[2018-09-24] MEDS ORDERED: Furosemide 40 MG/4 ML VIAL SLOW IVP SCH (09:00)
--- NOTE | 2018-09-25 17:22 | DIS ---
DATE OF ADMISSION: 09/22/2018 DATE OF DISCHARGE: 09/24/2018 CHIEF COMPLAINT: Shortness of breath and hypertension. DISCHARGE DIAGNOSES: 1. Shortness of breath, resolved, likely secondary to combination of volume overload and accelerated hypertension. 2. Mild chronic obstructive pulmonary disease per pulmonary function test this hospitalization. 3. Myasthenia gravis without acute flare. 4. Recent laminectomy of L5-S1. 5. Probable obstructive sleep apnea, currently untreated, but sleep study pending. 6. Chronic kidney disease, stage 3, stable. 7. Recently diagnosed coronary artery disease, moderate to severe, stable, followed by Dr. Willson. CONSULTATIONS: Dr. Hallman of Pulmonology and Dr. Holcomb of Neurology. BRIEF HOSPITAL COURSE: The patient is a very pleasant 78-year-old gentleman with past medical history significant for recent laminectomy several days ago, hypertension, CAD, and COPD, who presented to the hospital after suffering a 15-minute episode at home of shortness of breath. The patient's witnessed the episode and stated that his blood pressure was extremely elevated during the event with readings in the 200 systolic range. The patient called EMS, and by the time of their arrival, his breathing had improved and his blood pressure had trended down into 160 systolic. He was taken to the [facility] where an initial chest x-ray showed some evidence of possible pneumonia; however, when he was transferred here and underwent further review, this was thought to be normal pulmonary vasculature and no pneumothorax or pleural effusion. The patient was afebrile and had no white count. Both Dr. Holcomb and Dr. Hallman were consulted. Over the course of his stay, the patient underwent IV diuresis, and felt like his edema was much improved. He had an 8-pound weight loss during his stay. He has had no further shortness of breath. His blood pressure has trended down to the 120s to 130s systolic. Dr. Holcomb did recommend negative inspiratory force pulmonary testing, which was normal. He underwent a pulmonary function testing as well, which showed mild obstructive disease. He also had an echocardiogram, which showed normal left ventricular systolic function with EF of 55% to 60%. CONDITION AT DISCHARGE: Stable. DISCHARGE INSTRUCTIONS: The patient will continue his home medication and blood pressure regimen. I have given him a prescription for furosemide 40 mg daily along with potassium chloride 10 mEq daily to take for the next 5 days. FOLLOWUP CARE: The patient will need to follow up with his neurosurgeon, paper stacker, and neurologist, and all followups have been made. He is also scheduled to have outpatient polysomnography with his primary paper stacker. Dr. Willson has been managing his blood pressure regimen and it seems well controlled at this time. DISCHARGE DISPOSITION: Home in good condition. The care of this patient has been discussed with Dr. Torrez, who agrees with the above. Job ID: [id number]
== END 2018-09-24 10:30 | disposition home or self-care (01) ==
LOC: ERS 00:17 → 2SW 02:34
PROVIDERS: ADMIT Internal Medicine; ATTEND Internal Medicine
DX: R06.02 Shortness of breath (principal); I12.9 Hypertensive chronic kidney disease with stage 1 through stage 4 chronic kidney disease, or unspecified chronic kidney disease; N17.9 Acute kidney failure, unspecified; N18.3 Chronic kidney disease, stage 3 (moderate); E87.70 Fluid overload, unspecified; G70.00 Myasthenia gravis without (acute) exacerbation; E87.2 Acidosis; J44.9 Chronic obstructive pulmonary disease, unspecified; I25.10 Atherosclerotic heart disease of native coronary artery without angina pectoris; K21.9 Gastro-esophageal reflux disease without esophagitis; E78.5 Hyperlipidemia, unspecified; F17.290 Nicotine dependence, other tobacco product, uncomplicated; L57.0 Actinic keratosis; R60.0 Localized edema; Z98.890 Other specified postprocedural states; Z71.6 Tobacco abuse counseling; Z86.010 Personal history of colon polyps; Z88.1 Allergy status to other antibiotic agents; Z79.82 Long term (current) use of aspirin; Z79.899 Other long term (current) drug therapy
CPT/HCPCS: 80048; 81003; 83605 ×2; 83735; 84439; 84484 ×2; 85025; 93306; 94150; 96374; 96376 ×2; 99285; G0378 ×3; 36415; 80053; 84443; J1940; J7517

== ENCOUNTER 2018-11-29 20:30 | Outpatient (CLI) | payer MEDICARE | END 2018-11-29 20:31 | disposition home or self-care (01) | LOC: SLEEPLAB 20:30 | PROVIDERS: ATTEND Internal Medicine Critical Care Medicine | DX: G47.33 Obstructive sleep apnea (adult) (pediatric) (principal); R06.83 Snoring; G47.00 Insomnia, unspecified; G47.10 Hypersomnia, unspecified; I10 Essential (primary) hypertension | CPT/HCPCS: 95811 ==

== ENCOUNTER 2019-01-02 20:30 | Outpatient (CLI) | payer MEDICARE | END 2019-01-02 20:31 | disposition home or self-care (01) | LOC: SLEEPLAB 20:30 | PROVIDERS: ATTEND Internal Medicine Critical Care Medicine | DX: G47.33 Obstructive sleep apnea (adult) (pediatric) (principal); G47.10 Hypersomnia, unspecified; G47.31 Primary central sleep apnea; E66.9 Obesity, unspecified; Z68.30 Body mass index [BMI] 30.0-30.9, adult | CPT/HCPCS: 95811 ==

== ENCOUNTER 2019-03-31 06:29 | Outpatient (CLI) | payer MEDICARE ==
[2019-03-31 12:01] LABS: #Basophils 0.1 thou/uL (0.0-0.2); #Eosinphils 0.3 thou/uL (0.0-0.7); #Lymphocytes 2.9 thou/uL (1.20-3.40); #Monocytes 0.7 thou/uL (0.11-0.59); #Neutrophils 3.9 thou/uL (1.40-6.50); %Basophils 0.9 % (0.0-1.0); %Lymphocytes 36.6 % (21.0-51.0); %Monocytes 8.4 % (0.0-10.0); %Neutrophils 50.1 % (42.0-75.0); Mean Corpuscular HGB CONC 33.2 g/dL (32.0-36.0); Mean Corpuscular Hemoglobin 30.5 pg (27.0-31.0); Mean Corpuscular Volume 91.8 fL (78.0-98.0); Mean Platelet Volume 7.6 fL (7.4-10.4); Platelet Count 212 thou/uL (130-400); RBC Distribution Width 13.1 % (11.5-14.5); Red Blood Cell (RBC) Count 4.58 mill/uL (4.70-6.10); White Blood Cell (WBC) Count 7.8 thou/uL (4.8-10.8)
[2019-03-31 12:20] LABS: Anion Gap 10 mmol/L (10-20); BUN (Urea Nitrogen) 17 mg/dL (8.4-25.7); Calc. Creatinine Clearance 0 mL/min (70-130); Calcium 9.8 mg/dL (7.8-10.44); Carbon Dioxide 32 mmol/L (23-31); Chloride 102 mmol/L (98-107); Estimated GFR-MDRD 57; Glucose 85 mg/dL (83-110); Potassium 3.8 mmol/L (3.5-5.1); Sodium 140 mmol/L (136-145)
--- NOTE | 2019-04-01 14:11 | EKG ---
Test Reason : Blood Pressure : / mmHG Vent. Rate : 049 BPM Atrial Rate : 049 BPM P-R Int : 218 ms QRS Dur : 132 ms QT Int : 454 ms P-R-T Axes : 090 -59 008 degrees QTc Int : 410 ms Marked sinus bradycardia with 1st degree A-V block Non-specific intra-ventricular conduction block Leftward axis Abnormal ECG When compared with ECG of 05-AUG-2018 08:18, Premature atrial complexes are no longer Present Confirmed by XIOMY FRANKS, SCherie ([id number]) on 04/01/2019 2:10:51 PM Referred By: IERO Confirmed By:DR. Dina STAUFFER MD
== END 2019-03-31 06:30 | disposition home or self-care (01) ==
LOC: LABBT 06:29
PROVIDERS: ATTEND Orthopaedic Surgery
DX: Z01.818 Encounter for other preprocedural examination (principal); M75.102 Unspecified rotator cuff tear or rupture of left shoulder, not specified as traumatic
CPT/HCPCS: 80048; 85025; 93005; 93010

== ENCOUNTER 2019-04-02 07:38 | Day surgery (SDC) | payer MEDICARE ==
[2019-03-31 10:38] VITALS: BMI 30.4
[2019-04-02] MEDS ORDERED: Lidocaine 1% w/Epinephrine 1:100K 20 ML VIAL ONE (08:55)
[2019-04-02] MEDS ORDERED: SUGAMMADEX SODIUM 500 MG/5 ML VIAL ONE (09:16)
[2019-04-02] MEDS ORDERED: Fentanyl 100 MCG/2 ML VIAL ONE (09:31)
[2019-04-02] MEDS ORDERED: ePHEDrine/0.9% NaCl/PF SYRINGE 50 mg/10 ml ONE (09:50)
[2019-04-02] MEDS ORDERED: Lidocaine 1% PF 5 ML VIAL ONE (09:50)
[2019-04-02] MEDS ORDERED: Rocuronium Bromide 10 MG/ML (10ML VIAL) ONE (09:50)
[2019-04-02] MEDS ORDERED: PROPOFOL 200 MG/20 ML VIAL ONE (09:50)
[2019-04-02] MEDS ORDERED: Bupivacaine PF 0.5% 30 ML VIAL ONE (09:55)
[2019-04-02] MEDS ORDERED: HYDROcodone/Acetaminophen 5/325 mg Tablet ONE (12:52)
--- NOTE | 2019-04-07 09:54 | OP ---
DATE OF PROCEDURE: 04/02/2019 PREOPERATIVE DIAGNOSES: 1. Impingement left shoulder, glenohumeral arthritis with significant unstable chondral flaps of the humeral head as well as the glenoid. 2. Global degenerative labral tear including degenerative superior labral tear and a large fragment off the inferior labrum, which was displaced into the axillary pouch. POSTOPERATIVE DIAGNOSES: 1. Impingment left shoulder, glenohumberal arthritis with significant unstable chondral flaps of the humeral head as well as the glenoid. 2. Global degenerative labral tear including degenerative superior labral tear and a large fragment off the inferior labrum, which was displaced into the axillary pouch. PROCEDURES PERFORMED: 1. Left shoulder arthroscopy with extensive debridement and shaving of unstable chondral flaps and degenerative labrum. 2. Arthroscopic biceps tenotomy. 3. Subacromial bursa removal without any bony decompression. DOT COMPLIANCE MANAGER: None. ESTIMATED BLOOD LOSS: Minimal. COMPLICATIONS: None. ANESTHESIA: The patient did have general anesthetic. DISPOSITION: He went to recovery room in stable condition. INDICATIONS: This is a 79-year-old male who has had significant pain in his shoulder that has failed non-operative treatment and is presenting for shoulder surgery. The patient has history of myasthenia gravis, and at this time, it was felt best not to do a block secondary to this. DESCRIPTION OF PROCEDURE: After all appropriate consent forms were explained and signed, he was taken to the operating room and at this time was given general anesthetic. Once the level of anesthesia was appropriate, he was rolled in the right lateral decubitus position with all bony prominences well-padded. An axillary roll was placed underneath the right axilla and a yancey bag was inflated to hold this position. The arm was then suspended in standard fashion. The left shoulder and upper extremity were then prepped and draped in standard surgical fashion. Bony anatomical landmarks were drawn out and the subacromial space was then infiltrated with 1% lidocaine with epinephrine. Also did inject around planned portal sites with this medicine. At this time, posterior portal was established. Scope was placed into the shoulder joint. Anterior working portal was made using a needle localization technique. Diagnostic arthroscopy commenced. The subscapularis was found to be intact. There was some significant chondral damage to the humeral head as well as the glenoid with some unstable chondral flaps. All loose chondral flaps were removed. The labrum was found to be degenerative circumferentially. The superior labrum was found to be unstable, thus leading to biceps instability and at this time, a biceps tenotomy was performed. The rotator cuff was found to be in good condition upon visualization. The axillary pouch was evaluated. There was a large fragment of the labrum sticking down into the axillary pouch, this was debrided with a shaver. The posterior and inferior degenerative labrum were debrided at this time. At this time, the SERFAS energy was used to coagulate any brisk venous bleeding noted in the glenohumeral joint and the scope was then removed and replaced into the subacromial space. Lateral working portal was made. Using the SERFAS as well as the shaver, copious amount of bursa was removed from off the underlying rotator cuff. He was found to be scuffed, but there was no significant tear noted. Small bony decompression was performed secondary to glenohumeral arthritis. At this time, scope was removed. The shoulder was drained and we did inject some plain local into the portal sites again, some into the subacromial space, and some into the glenohumeral joint for postop pain relief. Portals were closed with simple nylon stitch. Bulky sterile dressing was applied. The patient was awakened, he was taken to the recovery room in stable condition. All counts were correct at the end of the case and he did receive preoperative IV antibiotics. Job ID: [id number] [facility]
== END 2019-04-02 13:05 | disposition home or self-care (01) ==
LOC: SDC 07:38
PROVIDERS: ATTEND Orthopaedic Surgery
PROC: 0LS24ZZ Reposition Left Shoulder Tendon, Percutaneous Endoscopic Approach (ICD-10-PCS; principal; 2019-04-02)
PROC: 0RBK4ZZ Excision of Left Shoulder Joint, Percutaneous Endoscopic Approach (ICD-10-PCS; 2019-04-02)
DX: S43.432A Superior glenoid labrum lesion of left shoulder, initial encounter (principal); M25.812 Other specified joint disorders, left shoulder; I10 Essential (primary) hypertension; G70.00 Myasthenia gravis without (acute) exacerbation; E78.00 Pure hypercholesterolemia, unspecified; K21.9 Gastro-esophageal reflux disease without esophagitis; Z79.82 Long term (current) use of aspirin; Z79.899 Other long term (current) drug therapy; Z88.1 Allergy status to other antibiotic agents
CPT/HCPCS: J0690; J2001; J2704; J3010; S0020

== ENCOUNTER 2019-12-04 09:41 | Day surgery (SDC) | payer MEDICARE ==
[~2019-12-04 09:41] MED LIST changes: -ADMIXTURE FEE IVPB SCH; -OCTAGAM IVPB SCH; -Privigen 10 GM in Admixture Fee 1 EACH IVPB SCH; -diphenhydrAMINE 25 MG in Sodium Chloride 0.9% 50 ML IVPB SCH; -diphenhydrAMINE 50 MG/ML VIAL IVP SCH
[2019-12-04] MEDS ORDERED: Sodium Chloride 0.9% 20 ML ONE (09:59)
[2019-12-04 10:12] VITALS: TEMP 98.5
[2019-12-04 14:44] VITALS: BP 147/86
== END 2019-12-04 14:43 | disposition home or self-care (01) ==
LOC: ONC/OP 09:41
PROVIDERS: ATTEND Psychiatry & Neurology Neurology
DX: G70.00 Myasthenia gravis without (acute) exacerbation (principal); Z88.1 Allergy status to other antibiotic agents
CPT/HCPCS: 96365; 96366; J1568

== ENCOUNTER 2020-01-01 09:48 | Day surgery (SDC) | payer MEDICARE ==
[~2020-01-01 09:48] MED LIST changes: +ADMIXTURE FEE IVPB SCH; +OCTAGAM IVPB SCH
[2020-01-01] MEDS ORDERED: Sodium Chloride 0.9% 20 ML ONE (09:57)
[2020-01-01 10:21] VITALS: TEMP 98.6
[2020-01-01 14:00] VITALS: BP 186/86
== END 2020-01-01 14:02 | disposition home or self-care (01) ==
LOC: ONC/OP 09:48
PROVIDERS: ATTEND Psychiatry & Neurology Neurology
DX: G70.00 Myasthenia gravis without (acute) exacerbation (principal); Z88.1 Allergy status to other antibiotic agents
CPT/HCPCS: 96365; 96366; J1568

== ENCOUNTER 2020-02-05 09:47 | Day surgery (SDC) | payer MEDICARE ==
[2020-02-05] MEDS ORDERED: Sodium Chloride 0.9% 20 ML ONE (10:08)
[2020-02-05] MEDS ORDERED: OCTAGAM IVPB SCH (10:15)
[2020-02-05] MEDS ORDERED: ADMIXTURE FEE IVPB SCH (10:15)
[2020-02-05 10:26] VITALS: BP 138/72; TEMP 98.5
== END 2020-02-05 13:56 | disposition home or self-care (01) ==
LOC: ONC/OP 09:47
PROVIDERS: ATTEND Psychiatry & Neurology Neurology
DX: G70.00 Myasthenia gravis without (acute) exacerbation (principal)
CPT/HCPCS: 96365; 96366; J1568

== ENCOUNTER 2020-03-09 09:35 | Day surgery (SDC) | payer MEDICARE ==
[~2020-03-09 09:35] MED LIST changes: -OCTAGAM 10% 80 GM in Admixture Fee 1 EACH IVPB SCH
[2020-03-09] MEDS ORDERED: Sodium Chloride 0.9% 20 ML ONE (09:46)
[2020-03-09 10:57] VITALS: BP 128/86; TEMP 98
== END 2020-03-09 13:32 | disposition home or self-care (01) ==
LOC: ONC/OP 09:35
PROVIDERS: ATTEND Psychiatry & Neurology Neurology
DX: G70.00 Myasthenia gravis without (acute) exacerbation (principal); Z88.1 Allergy status to other antibiotic agents
CPT/HCPCS: 96365; 96366; J1568

== ENCOUNTER 2020-04-13 09:38 | Day surgery (SDC) | payer MEDICARE ==
[2020-04-13 10:37] VITALS: BP 151/70
== END 2020-04-13 13:54 | disposition home or self-care (01) ==
LOC: ONC/OP 09:38
PROVIDERS: ATTEND Psychiatry & Neurology Neurology
DX: G70.00 Myasthenia gravis without (acute) exacerbation (principal); G63 Polyneuropathy in diseases classified elsewhere; K21.9 Gastro-esophageal reflux disease without esophagitis; I10 Essential (primary) hypertension; E78.00 Pure hypercholesterolemia, unspecified; Z87.891 Personal history of nicotine dependence; Z79.82 Long term (current) use of aspirin; Z79.899 Other long term (current) drug therapy; Z88.1 Allergy status to other antibiotic agents
CPT/HCPCS: 96365; 96366; J1568

== ENCOUNTER 2020-05-11 09:47 | Day surgery (SDC) | payer MEDICARE ==
[2020-05-11] MEDS ORDERED: Sodium Chloride 0.9% 20 ML ONE (09:52)
[2020-05-11] MEDS ORDERED: ADMIXTURE FEE IVPB SCH (10:00)
[2020-05-11] MEDS ORDERED: OCTAGAM IVPB SCH (10:00)
[2020-05-11] MEDS ORDERED: OCTAGAM 10% 80 GM in Admixture Fee 1 EACH IVPB SCH (10:15)
[2020-05-11 10:28] VITALS: BP 165/72; TEMP 98
== END 2020-05-11 13:27 | disposition home or self-care (01) ==
LOC: ONC/OP 09:47
PROVIDERS: ATTEND Psychiatry & Neurology Neurology
DX: G70.00 Myasthenia gravis without (acute) exacerbation (principal); Z88.1 Allergy status to other antibiotic agents
CPT/HCPCS: 96365; 96366; J1568

== ENCOUNTER 2020-06-29 09:30 | Day surgery (SDC) | payer MEDICARE ==
[2020-06-29] MEDS ORDERED: OCTAGAM IVPB SCH (10:15)
[2020-06-29] MEDS ORDERED: OCTAGAM 10% 80 GM in Admixture Fee 1 EACH IVPB SCH (10:15)
[2020-06-29] MEDS ORDERED: ADMIXTURE FEE IVPB SCH (10:15)
[2020-06-29 11:07] VITALS: BP 130/70; TEMP 97.8
== END 2020-06-29 13:51 | disposition home or self-care (01) ==
LOC: ONC/OP 09:30
PROVIDERS: ATTEND Psychiatry & Neurology Neurology
DX: G70.00 Myasthenia gravis without (acute) exacerbation (principal); Z88.1 Allergy status to other antibiotic agents
CPT/HCPCS: 96365; 96366; J1568

== ENCOUNTER 2020-08-10 09:14 | Day surgery (SDC) | payer MEDICARE ==
[2020-08-10] MEDS ORDERED: Sodium Chloride 0.9% 20 ML ONE (09:21)
[2020-08-10] MEDS ORDERED: OCTAGAM IVPB SCH (09:30)
[2020-08-10] MEDS ORDERED: ADMIXTURE FEE IVPB SCH (09:30)
[2020-08-10 09:36] VITALS: BP 160/73; TEMP 98
== END 2020-08-10 14:35 | disposition home or self-care (01) ==
LOC: ONC/OP 09:14
PROVIDERS: ATTEND Psychiatry & Neurology Neurology
DX: G70.00 Myasthenia gravis without (acute) exacerbation (principal); Z88.1 Allergy status to other antibiotic agents
CPT/HCPCS: 96365; 96366; J1568

== ENCOUNTER 2020-09-16 09:43 | Day surgery (SDC) | payer MEDICARE ==
[2020-09-16 10:13] VITALS: BP 122/66; TEMP 98
[2020-09-16] MEDS ORDERED: Sodium Chloride 0.9% 20 ML ONE (10:22)
[2020-09-21] MEDS ORDERED: OCTAGAM IVPB SCH ×2 (10:00→10:15)
[2020-09-21] MEDS ORDERED: ADMIXTURE FEE IVPB SCH ×2 (10:00→10:15)
== END 2020-09-16 13:34 | disposition home or self-care (01) ==
LOC: ONC/OP 09:43
PROVIDERS: ATTEND Psychiatry & Neurology Neurology
DX: G70.00 Myasthenia gravis without (acute) exacerbation (principal); Z88.1 Allergy status to other antibiotic agents
CPT/HCPCS: 96365; 96366; J1568

== ENCOUNTER 2020-10-21 09:44 | Day surgery (SDC) | payer MEDICARE ==
[2020-10-21] MEDS ORDERED: Sodium Chloride 0.9% 20 ML ONE (09:49)
[2020-10-21 10:16] VITALS: BP 164/80; TEMP 98.1
== END 2020-10-21 13:11 | disposition home or self-care (01) ==
LOC: ONC/OP 09:44
PROVIDERS: ATTEND Psychiatry & Neurology Neurology
DX: G70.00 Myasthenia gravis without (acute) exacerbation (principal); Z88.1 Allergy status to other antibiotic agents
CPT/HCPCS: 96365; 96366; J1568

== ENCOUNTER 2021-01-04 | Emergency (ER) | payer MEDICARE | END 2021-01-04 21:31 | disposition left against medical advice (07) | DX: Z53.21 Procedure and treatment not carried out due to patient leaving prior to being seen by health care provider (principal) ==

== ENCOUNTER 2021-01-14 09:44 | Day surgery (SDC) | payer MEDICARE ==
[~2021-01-14 09:44] MED LIST changes: +ADMIXTURE FEE CHEMO IVPB SCH; -ADMIXTURE FEE IVPB SCH
[2021-01-14 10:20] VITALS: BP 122/53; TEMP 97.8
== END 2021-01-14 13:32 | disposition home or self-care (01) ==
LOC: ONC/OP 09:44
PROVIDERS: ATTEND Psychiatry & Neurology Neurology
DX: G70.00 Myasthenia gravis without (acute) exacerbation (principal); Z88.1 Allergy status to other antibiotic agents
CPT/HCPCS: 96365; 96366; J1568

== ENCOUNTER 2021-02-17 09:41 | Day surgery (SDC) | payer MEDICARE ==
[~2021-02-17 09:41] MED LIST changes: -ADMIXTURE FEE CHEMO IVPB SCH; +OCTAGAM 10% 80 GM in Admixture Fee 1 EACH IVPB SCH; -OCTAGAM IVPB SCH
[2021-02-17] MEDS ORDERED: Sodium Chloride 0.9% 20 ML ONE (09:52)
[2021-02-17 10:16] VITALS: BP 138/71; TEMP 97.6
== END 2021-02-17 13:36 | disposition home or self-care (01) ==
LOC: ONC/OP 09:41
PROVIDERS: ATTEND Psychiatry & Neurology Neurology
DX: G70.00 Myasthenia gravis without (acute) exacerbation (principal); Z88.1 Allergy status to other antibiotic agents
CPT/HCPCS: 96365; 96366; J1568

== ENCOUNTER → 2021-03-24 | Day surgery (SDC) | payer MEDICARE ==
[~2021-03-24] MED LIST changes: +EPOETIN ALFA-EPBX (ESRD) 40,000 UNIT/ML VIAL ONE; -OCTAGAM 10% 80 GM in Admixture Fee 1 EACH IVPB SCH; +OCTAGAM 10% 90 GM in Admixture Fee 1 EACH IVPB SCH; +Sodium Chloride 0.9% 20 ML ONE
[2021-03-24 10:16] VITALS: TEMP 98.5
[2021-03-24 12:22] VITALS: BP 169/74
== END ==
LOC: ONC/OP 09:40
PROVIDERS: ATTEND Psychiatry & Neurology Neurology
DX: G70.00 Myasthenia gravis without (acute) exacerbation (principal)
CPT/HCPCS: 96365; 96366; J1568; Q5105

== ENCOUNTER 2021-05-03 09:45 | Day surgery (SDC) | payer MEDICARE ==
[~2021-05-03 09:45] MED LIST changes: +ADMIXTURE FEE IVPB SCH; -EPOETIN ALFA-EPBX (ESRD) 40,000 UNIT/ML VIAL ONE; +IMMUNE GLOBULIN IVPB SCH; -OCTAGAM 10% 90 GM in Admixture Fee 1 EACH IVPB SCH; -Sodium Chloride 0.9% 20 ML ONE
[2021-05-03] MEDS ORDERED: Sodium Chloride 0.9% 10 ML ONE ×2 (10:07)
[2021-05-03 10:20] VITALS: TEMP 97.8
[2021-05-03 13:15] VITALS: BP 137/66
== END 2021-05-03 14:36 | disposition home or self-care (01) ==
LOC: ONC/OP 09:45
PROVIDERS: ATTEND Psychiatry & Neurology Neurology
DX: G70.00 Myasthenia gravis without (acute) exacerbation (principal); K21.9 Gastro-esophageal reflux disease without esophagitis; I10 Essential (primary) hypertension; E78.00 Pure hypercholesterolemia, unspecified; Z87.891 Personal history of nicotine dependence; Z79.82 Long term (current) use of aspirin; Z79.899 Other long term (current) drug therapy; Z88.1 Allergy status to other antibiotic agents
CPT/HCPCS: 96365; 96366; J1568

== ENCOUNTER 2021-06-08 09:36 | Day surgery (SDC) | payer MEDICARE ==
[2021-06-08] MEDS ORDERED: Sodium Chloride 0.9% 10 ML ONE ×2 (09:48)
[2021-06-08 11:06] VITALS: TEMP 97.8
[2021-06-08 12:03] VITALS: BP 142/67
== END 2021-06-08 15:30 | disposition home or self-care (01) ==
LOC: ONC/OP 09:36
PROVIDERS: ATTEND Psychiatry & Neurology Neurology
DX: G70.00 Myasthenia gravis without (acute) exacerbation (principal); Z88.1 Allergy status to other antibiotic agents
CPT/HCPCS: 96365; 96366; J1568

== ENCOUNTER 2021-09-22 09:28 | Day surgery (SDC) | payer MEDICARE ==
[2021-09-22 09:49] VITALS: TEMP 97.6
[2021-09-22 12:13] VITALS: BP 128/77
== END 2021-09-22 13:04 | disposition home or self-care (01) ==
LOC: ONC/OP 09:28
PROVIDERS: ATTEND Psychiatry & Neurology Neurology
DX: G70.00 Myasthenia gravis without (acute) exacerbation (principal); Z88.1 Allergy status to other antibiotic agents
CPT/HCPCS: 96365; 96366; J1568

== ENCOUNTER 2021-11-03 08:21 | Day surgery (SDC) | payer MEDICARE ==
[2021-11-03] MEDS ORDERED: ADMIXTURE FEE IVPB SCH (08:45)
[2021-11-03] MEDS ORDERED: IMMUNE GLOBULIN IVPB SCH (08:45)
[2021-11-03 09:22] VITALS: BP 118/64; TEMP 98.1
== END 2021-11-03 12:10 | disposition home or self-care (01) ==
LOC: ONC/OP 08:21
PROVIDERS: ATTEND Psychiatry & Neurology Neurology
DX: G70.00 Myasthenia gravis without (acute) exacerbation (principal); Z88.1 Allergy status to other antibiotic agents
CPT/HCPCS: 96365; 96366; J1568

== ENCOUNTER → 2021-12-08 | Day surgery (SDC) | payer MEDICARE ==
[2021-12-08 10:32] VITALS: TEMP 98
[2021-12-08 13:13] VITALS: BP 148/71
== END | disposition home or self-care (01) ==
LOC: ONC/OP 08:23
PROVIDERS: ATTEND Psychiatry & Neurology Neurology
DX: G70.00 Myasthenia gravis without (acute) exacerbation (principal); Z88.1 Allergy status to other antibiotic agents
CPT/HCPCS: 96365; 96376; J1568

== ENCOUNTER 2022-01-12 09:46 | Day surgery (SDC) | payer MEDICARE ==
[2022-01-12 10:21] VITALS: BP 151/69; TEMP 97.9
== END 2022-01-12 13:16 | disposition home or self-care (01) ==
LOC: ONC/OP 09:46
PROVIDERS: ATTEND Psychiatry & Neurology Neurology
DX: G70.00 Myasthenia gravis without (acute) exacerbation (principal); Z88.1 Allergy status to other antibiotic agents
CPT/HCPCS: 96365; 96366; J1568

== ENCOUNTER 2022-02-16 09:25 | Day surgery (SDC) | payer MEDICARE ==
[~2022-02-16 09:25] MED LIST changes: +ADMIXTURE FEE CHEMO IVPB SCH; -ADMIXTURE FEE IVPB SCH; -IMMUNE GLOBULIN IVPB SCH; +PRIVIGEN IVPB SCH
[2022-02-16 15:54] VITALS: BP 139/71; TEMP 98.2
== END 2022-02-16 15:31 | disposition home or self-care (01) ==
LOC: ONC/OP 09:25
PROVIDERS: ATTEND Psychiatry & Neurology Neurology
DX: G70.00 Myasthenia gravis without (acute) exacerbation (principal); Z88.1 Allergy status to other antibiotic agents
CPT/HCPCS: 96365; 96366; J1459

== ENCOUNTER 2022-03-23 09:27 | Day surgery (SDC) | payer MEDICARE | END 2022-03-23 14:50 | disposition home or self-care (01) | LOC: ONC/OP 09:27 | PROVIDERS: ATTEND Psychiatry & Neurology Neurology | DX: G70.00 Myasthenia gravis without (acute) exacerbation (principal); Z88.1 Allergy status to other antibiotic agents | CPT/HCPCS: 96365; 96366; J1459 ==

== ENCOUNTER 2022-04-20 09:05 | Day surgery (SDC) | payer MEDICARE ==
[~2022-04-20 09:05] MED LIST changes: +ADMIXTURE FEE IVPB SCH
[2022-04-20 13:10] VITALS: BP 120/65; TEMP 97.8
== END 2022-04-20 13:07 | disposition home or self-care (01) ==
LOC: ONC/OP 09:05
PROVIDERS: ATTEND Psychiatry & Neurology Neurology
DX: G70.00 Myasthenia gravis without (acute) exacerbation (principal); Z88.1 Allergy status to other antibiotic agents
CPT/HCPCS: 96365; 96366; J1459

== ENCOUNTER 2022-05-25 08:49 | Day surgery (SDC) | payer MEDICARE ==
[~2022-05-25 08:49] MED LIST changes: -ADMIXTURE FEE CHEMO IVPB SCH; -ADMIXTURE FEE IVPB SCH; -PRIVIGEN IVPB SCH; +Privigen 80 GM, Privigen 10 GM in Admixture Fee 1 EACH IVPB SCH
[2022-05-25 10:02] VITALS: BP 142/75; TEMP 97.7
== END 2022-05-25 14:16 | disposition home or self-care (01) ==
LOC: ONC/OP 08:49
PROVIDERS: ATTEND Psychiatry & Neurology Neurology
DX: G70.00 Myasthenia gravis without (acute) exacerbation (principal); Z88.1 Allergy status to other antibiotic agents
CPT/HCPCS: 96365; 96366; J1459

== ENCOUNTER 2022-06-29 08:34 | Day surgery (SDC) | payer MEDICARE ==
[2022-06-29 09:17] VITALS: BP 133/74; TEMP 97.8
== END 2022-06-29 12:20 | disposition home or self-care (01) ==
LOC: ONC/OP 08:34
PROVIDERS: ATTEND Psychiatry & Neurology Neurology
DX: G70.00 Myasthenia gravis without (acute) exacerbation (principal); Z88.1 Allergy status to other antibiotic agents
CPT/HCPCS: 96365; 96366; J1459

== ENCOUNTER 2022-08-03 08:28 | Day surgery (SDC) | payer MEDICARE ==
[2022-08-03 09:01] VITALS: BP 117/65; TEMP 98
== END 2022-08-03 12:39 | disposition home or self-care (01) ==
LOC: ONC/OP 08:28
PROVIDERS: ATTEND Psychiatry & Neurology Neurology
DX: G70.00 Myasthenia gravis without (acute) exacerbation (principal); Z88.1 Allergy status to other antibiotic agents
CPT/HCPCS: 96365; 96366; J1459 ×2

== ENCOUNTER 2022-09-07 08:36 | Day surgery (SDC) | payer MEDICARE ==
[2022-09-07 11:10] VITALS: TEMP 97.6
[2022-09-07 13:57] VITALS: BP 135/69
== END 2022-09-07 13:58 | disposition home or self-care (01) ==
LOC: ONC/OP 08:36
PROVIDERS: ATTEND Psychiatry & Neurology Neurology
DX: G70.00 Myasthenia gravis without (acute) exacerbation (principal); Z88.1 Allergy status to other antibiotic agents
CPT/HCPCS: 96365; 96366; J1459 ×2

== ENCOUNTER 2022-11-16 08:21 | Day surgery (SDC) | payer MEDICARE ==
[2022-11-16 11:53] VITALS: TEMP 97.8
[2022-11-16 12:30] VITALS: BP 140/78
== END 2022-11-16 12:28 | disposition home or self-care (01) ==
LOC: ONC/OP 08:21
PROVIDERS: ATTEND Psychiatry & Neurology Neurology
DX: G70.00 Myasthenia gravis without (acute) exacerbation (principal); Z88.1 Allergy status to other antibiotic agents
CPT/HCPCS: 96413; 96415; J1459 ×2

== ENCOUNTER 2022-12-21 08:25 | Day surgery (SDC) | payer MEDICARE ==
[2022-12-21] MEDS ORDERED: ADMIXTURE FEE IVPB SCH (08:45)
[2022-12-21] MEDS ORDERED: PRIVIGEN IVPB SCH (08:45)
[2022-12-21 14:08] VITALS: TEMP 97.9
[2022-12-21 14:10] VITALS: BP 142/72
== END 2022-12-21 14:07 | disposition home or self-care (01) ==
LOC: ONC/OP 08:25
PROVIDERS: ATTEND Psychiatry & Neurology Neurology
DX: G70.00 Myasthenia gravis without (acute) exacerbation (principal); Z88.1 Allergy status to other antibiotic agents
CPT/HCPCS: 96365; 96366; J1459

== ENCOUNTER 2023-01-25 08:37 | Day surgery (SDC) | payer MEDICARE ==
[~2023-01-25 08:37] MED LIST changes: +ADMIXTURE FEE IVPB SCH; +PRIVIGEN IVPB SCH; -Privigen 80 GM, Privigen 10 GM in Admixture Fee 1 EACH IVPB SCH
[2023-01-25 15:00] VITALS: BP 144/76; TEMP 97.6
== END 2023-01-25 12:54 | disposition home or self-care (01) ==
LOC: ONC/OP 08:37
PROVIDERS: ATTEND Psychiatry & Neurology Neurology
DX: G70.00 Myasthenia gravis without (acute) exacerbation (principal); Z88.1 Allergy status to other antibiotic agents
CPT/HCPCS: 96365; 96366; J1459

== ENCOUNTER 2023-03-01 08:33 | Day surgery (SDC) | payer MEDICARE ==
[~2023-03-01 08:33] MED LIST changes: -ADMIXTURE FEE IVPB SCH; -PRIVIGEN IVPB SCH; +Privigen 80 GM, Privigen 10 GM in Admixture Fee 1 EACH IVPB SCH
[2023-03-01] MEDS ORDERED: PRIVIGEN IVPB SCH (09:00)
[2023-03-01] MEDS ORDERED: ADMIXTURE FEE IVPB SCH (09:00)
[2023-03-01] MEDS ORDERED: FLU VACC QS2023(65UP)/MF59C/PF 60 MCG/0.5 ML SYRINGE IM ONE (11:00)
[2023-03-01 13:31] VITALS: BP 147/69; TEMP 98.2
== END 2023-03-01 13:26 | disposition home or self-care (01) ==
LOC: ONC/OP 08:33
PROVIDERS: ATTEND Psychiatry & Neurology Neurology
DX: G70.00 Myasthenia gravis without (acute) exacerbation (principal); Z88.1 Allergy status to other antibiotic agents
CPT/HCPCS: 96413; 96415; J1459 ×2

== ENCOUNTER 2023-03-26 09:58 | Outpatient (CLI) | payer MEDICARE ==
[2023-03-26] MEDS ORDERED: Iopamidol 370 76% 100 ML VIAL ONE (10:54)
== END 2023-03-26 09:59 | disposition home or self-care (01) ==
LOC: BICCT 09:58
PROVIDERS: ATTEND Psychiatry & Neurology Neurology
DX: G70.00 Myasthenia gravis without (acute) exacerbation (principal); K83.8 Other specified diseases of biliary tract; K76.0 Fatty (change of) liver, not elsewhere classified; K44.9 Diaphragmatic hernia without obstruction or gangrene; N28.1 Cyst of kidney, acquired; I73.9 Peripheral vascular disease, unspecified; R91.1 Solitary pulmonary nodule
CPT/HCPCS: 71260

== ENCOUNTER 2023-04-05 08:12 | Day surgery (SDC) | payer MEDICARE ==
[2023-04-05] MEDS ORDERED: ADMIXTURE FEE CHEMO IVPB SCH (08:30)
[2023-04-05] MEDS ORDERED: PRIVIGEN IVPB SCH (08:30)
[2023-04-05] MEDS ORDERED: FLU VACC QS2023(65UP)/MF59C/PF 60 MCG/0.5 ML SYRINGE IM ONE (12:00)
[2023-04-05 13:41] VITALS: BP 138/71; TEMP 97.6
== END 2023-04-05 13:42 | disposition home or self-care (01) ==
LOC: ONC/OP 08:12
PROVIDERS: ATTEND Psychiatry & Neurology Neurology
DX: G70.00 Myasthenia gravis without (acute) exacerbation (principal)
CPT/HCPCS: 96413; 96415; J1459 ×2

== ENCOUNTER 2023-04-20 09:41 | Outpatient (CLI) | payer MEDICARE ==
[2023-04-20] MEDS ORDERED: Magnevist 469MG/ML 20 ML VIAL ONE (11:44)
== END 2023-04-20 09:42 | disposition home or self-care (01) ==
LOC: MRI 09:41
PROVIDERS: ATTEND Physician Assistant Medical
DX: K83.8 Other specified diseases of biliary tract (principal); K80.50 Calculus of bile duct without cholangitis or cholecystitis without obstruction
CPT/HCPCS: 74183; A9579

== ENCOUNTER 2023-04-25 06:04 | Day surgery (SDC) | payer MEDICARE ==
[2023-04-24 12:11] VITALS: BMI 29.9
[2023-04-25] MEDS ORDERED: Rocuronium Bromide 10 MG/ML (10ML VIAL) ONE (07:04)
[2023-04-25] MEDS ORDERED: PROPOFOL 20 ML ONE ×2 (07:04→07:36)
[2023-04-25] MEDS ORDERED: Lidocaine 1% PF 5 ML VIAL ONE ×2 (07:04→08:04)
[2023-04-25] MEDS ORDERED: Iopamidol 30 ML ONE (07:05)
[2023-04-25] MEDS ORDERED: Indomethacin 50 MG SUPP ONE (07:36)
[2023-04-25] MEDS ORDERED: Sodium Chloride 0.9% 100 ML ONE (07:49)
[2023-04-25] MEDS ORDERED: cefTRIAXone (ROCEPHIN) 1 GM VIAL ONE (07:49)
[2023-04-25] MEDS ORDERED: PHENYLEPHRINE-NS 100 MCG/ML 10 ML SYRINGE ONE ×2 (08:04→08:13)
[2023-04-25] MEDS ORDERED: Glycopyrrolate 0.2 MG/ML 5 ML SYRINGE ONE ×2 (08:04→08:09)
[2023-04-25] MEDS ORDERED: Ondansetron PF 4 MG/2 ML Vial ONE ×2 (08:04→08:29)
[2023-04-25] MEDS ORDERED: PROPOFOL 200 MG/20 ML VIAL ONE (08:04)
[2023-04-25] MEDS ORDERED: ePHEDrine Sulfate 50 MG/10 ML VIAL ONE ×2 (08:04→08:34)
[2023-04-25] MEDS ORDERED: Glucagon 1 MG/ML KIT ONE (08:42)
== END 2023-04-25 13:00 | disposition home or self-care (01) ==
LOC: SDC 06:04
PROVIDERS: ATTEND Internal Medicine Gastroenterology
PROC: 0F7C8ZZ Dilation of Ampulla of Vater, Via Natural or Artificial Opening Endoscopic (ICD-10-PCS; principal; 2023-04-25)
DX: K80.50 Calculus of bile duct without cholangitis or cholecystitis without obstruction (principal); K83.3 Fistula of bile duct; K21.9 Gastro-esophageal reflux disease without esophagitis; E78.00 Pure hypercholesterolemia, unspecified; I10 Essential (primary) hypertension; G70.00 Myasthenia gravis without (acute) exacerbation; G47.30 Sleep apnea, unspecified; Z98.890 Other specified postprocedural states; Z98.49 Cataract extraction status, unspecified eye; Z79.82 Long term (current) use of aspirin; Z79.899 Other long term (current) drug therapy; Z87.891 Personal history of nicotine dependence
CPT/HCPCS: 43277; 93005; J1611; 93010; J0696; J2405; J2704; J3490; Q9967

== ENCOUNTER 2023-06-14 08:46 | Day surgery (SDC) | payer MEDICARE ==
[2023-06-14] MEDS ORDERED: diphenhydrAMINE 25 MG CAP ONE (09:17)
[2023-06-14] MEDS ORDERED: Acetaminophen 500 MG TAB ONE (09:17)
[2023-06-14] MEDS: Acetaminophen 500 MG TAB PO SCH (09:29)
[2023-06-14] MEDS: diphenhydrAMINE 25 MG CAP PO SCH (09:29)
[2023-06-14] MEDS: PRIVIGEN IVPB SCH (09:35)
[2023-06-14] MEDS: ADMIXTURE FEE IVPB SCH (09:35)
[2023-06-14 13:33] VITALS: BP 157/75; TEMP 98.2
== END 2023-06-14 13:32 | disposition home or self-care (01) ==
LOC: ONC/OP 08:46
PROVIDERS: ATTEND Psychiatry & Neurology Neurology
DX: G70.00 Myasthenia gravis without (acute) exacerbation (principal); Z88.1 Allergy status to other antibiotic agents
CPT/HCPCS: 96413; 96415; J1459

== ENCOUNTER 2023-07-19 08:44 | Day surgery (SDC) | payer MEDICARE ==
[~2023-07-19 08:44] MED LIST changes: +ADMIXTURE FEE IVPB SCH; +Acetaminophen 500 MG TAB PO SCH; +PRIVIGEN IVPB SCH; -Privigen 80 GM, Privigen 10 GM in Admixture Fee 1 EACH IVPB SCH; +diphenhydrAMINE 25 MG CAP PO SCH
[2023-07-19] MEDS: PRIVIGEN IVPB SCH (09:46)
[2023-07-19] MEDS: ADMIXTURE FEE IVPB SCH (09:46)
[2023-07-19 13:28] VITALS: TEMP 97.8
[2023-07-19 13:29] VITALS: BP 160/77
== END 2023-07-19 13:24 | disposition home or self-care (01) ==
LOC: ONC/OP 08:44
PROVIDERS: ATTEND Psychiatry & Neurology Neurology
DX: G70.00 Myasthenia gravis without (acute) exacerbation (principal); Z88.1 Allergy status to other antibiotic agents
CPT/HCPCS: 96413; 96415; J1459

== ENCOUNTER 2023-09-27 08:22 | Day surgery (SDC) | payer MEDICARE ==
[2023-09-27 08:39] VITALS: TEMP 97.6
[2023-09-27] MEDS: diphenhydrAMINE 25 MG CAP PO SCH (09:14)
[2023-09-27] MEDS: Acetaminophen 500 MG TAB PO SCH (09:14)
[2023-09-27] MEDS: PRIVIGEN IVPB SCH (09:57)
[2023-09-27] MEDS: ADMIXTURE FEE IVPB SCH (09:57)
[2023-09-27] MEDS: Acetaminophen 500 MG TAB ONE (12:19)
[2023-09-27] MEDS: diphenhydrAMINE 25 MG CAP ONE (12:19)
[2023-09-27 14:06] VITALS: BP 164/79
== END 2023-09-27 14:06 | disposition home or self-care (01) ==
LOC: ONC/OP 08:22
PROVIDERS: ATTEND Psychiatry & Neurology Neurology
DX: G70.00 Myasthenia gravis without (acute) exacerbation (principal); Z88.1 Allergy status to other antibiotic agents
CPT/HCPCS: 96413; 96415; J1459

== ENCOUNTER 2023-11-01 08:16 | Day surgery (SDC) | payer MEDICARE ==
[2023-11-01] MEDS ORDERED: diphenhydrAMINE 25 MG CAP ONE (08:52)
[2023-11-01] MEDS ORDERED: Acetaminophen 500 MG TAB ONE (08:52)
[2023-11-01] MEDS: Acetaminophen 500 MG TAB PO SCH (08:53)
[2023-11-01] MEDS: diphenhydrAMINE 25 MG CAP PO SCH (08:53)
[2023-11-01] MEDS: ADMIXTURE FEE IVPB SCH (09:30)
[2023-11-01] MEDS: PRIVIGEN IVPB SCH (09:30)
[2023-11-01 14:08] VITALS: BP 160/70; TEMP 98.4
== END 2023-11-01 14:08 | disposition home or self-care (01) ==
LOC: ONC/OP 08:16
PROVIDERS: ATTEND Psychiatry & Neurology Neurology
DX: G70.00 Myasthenia gravis without (acute) exacerbation (principal); Z88.1 Allergy status to other antibiotic agents
CPT/HCPCS: 96365; 96366; J1459

== ENCOUNTER 2024-02-20 08:32 | Day surgery (SDC) | payer MEDICARE ==
[~2024-02-20 08:32] MED LIST changes: -ADMIXTURE FEE IVPB SCH; -PRIVIGEN IVPB SCH; -diphenhydrAMINE 25 MG CAP PO SCH
[2024-02-20] MEDS ORDERED: diphenhydrAMINE 25 MG CAP ONE (08:43)
[2024-02-20] MEDS: diphenhydrAMINE 25 MG CAP PO SCH (08:44)
[2024-02-20] MEDS: PRIVIGEN IVPB SCH (09:58)
[2024-02-20] MEDS: ADMIXTURE FEE IVPB SCH (09:58)
[2024-02-20 14:18] VITALS: BP 162/76; TEMP 98.5
== END 2024-02-20 14:17 | disposition home or self-care (01) ==
LOC: ONC/OP 08:32
PROVIDERS: ATTEND Psychiatry & Neurology Neurology
DX: G70.00 Myasthenia gravis without (acute) exacerbation (principal); Z88.1 Allergy status to other antibiotic agents
CPT/HCPCS: 96365; 96366; J1459

== ENCOUNTER 2024-03-26 08:17 | Day surgery (SDC) | payer MEDICARE ==
[2024-03-26] MEDS ORDERED: ADMIXTURE FEE IVPB SCH (09:00)
[2024-03-26] MEDS ORDERED: Acetaminophen 500 MG TAB PO SCH (09:00)
[2024-03-26] MEDS ORDERED: PRIVIGEN IVPB SCH (09:00)
[2024-03-26] MEDS ORDERED: diphenhydrAMINE 25 MG CAP ONE (09:24)
[2024-03-26] MEDS: diphenhydrAMINE 25 MG CAP PO SCH (09:26)
[2024-03-26] MEDS: Privigen 80 GM, Privigen 10 GM in Admixture Fee 1 EACH IVPB SCH (09:28)
[2024-03-26 13:11] VITALS: BP 131/97; TEMP 98.1
== END 2024-03-26 13:12 | disposition home or self-care (01) ==
LOC: ONC/OP 08:17
PROVIDERS: ATTEND Psychiatry & Neurology Neurology
DX: G70.00 Myasthenia gravis without (acute) exacerbation (principal); I10 Essential (primary) hypertension; E78.00 Pure hypercholesterolemia, unspecified; K21.9 Gastro-esophageal reflux disease without esophagitis; G47.33 Obstructive sleep apnea (adult) (pediatric); Z98.41 Cataract extraction status, right eye; Z98.42 Cataract extraction status, left eye; Z90.49 Acquired absence of other specified parts of digestive tract; Z87.891 Personal history of nicotine dependence; Z98.890 Other specified postprocedural states; Z88.1 Allergy status to other antibiotic agents; Z79.82 Long term (current) use of aspirin; Z79.51 Long term (current) use of inhaled steroids; Z79.899 Other long term (current) drug therapy
CPT/HCPCS: 96365; 96366; J1459 ×2

== ENCOUNTER 2024-05-02 08:19 | Day surgery (SDC) | payer MEDICARE ==
[2024-05-02] MEDS ORDERED: diphenhydrAMINE 25 MG CAP ONE (08:44)
[2024-05-02] MEDS ORDERED: Acetaminophen 500 MG TAB ONE (08:44)
[2024-05-02] MEDS: Acetaminophen 500 MG TAB PO SCH (08:45)
[2024-05-02] MEDS: diphenhydrAMINE 25 MG CAP PO SCH (08:46)
[2024-05-02] MEDS ORDERED: ADMIXTURE FEE IVPB SCH (09:00)
[2024-05-02] MEDS ORDERED: PRIVIGEN IVPB SCH (09:00)
[2024-05-02] MEDS: Privigen 80 GM, Privigen 10 GM in Admixture Fee 1 EACH IVPB SCH (09:37)
[2024-05-02 11:04] VITALS: TEMP 97.8
[2024-05-02 11:38] VITALS: BP 139/75
== END 2024-05-02 14:07 | disposition home or self-care (01) ==
LOC: ONC/OP 08:19
PROVIDERS: ATTEND Psychiatry & Neurology Neurology
DX: G70.00 Myasthenia gravis without (acute) exacerbation (principal); Z88.1 Allergy status to other antibiotic agents
CPT/HCPCS: 96365; 96366; J1459 ×2

== ENCOUNTER 2024-06-06 08:10 | Day surgery (SDC) | payer MEDICARE ==
[~2024-06-06 08:10] MED LIST changes: +ADMIXTURE FEE IVPB SCH; -Acetaminophen 500 MG TAB PO SCH; +PRIVIGEN IVPB SCH
[2024-06-06] MEDS ORDERED: Acetaminophen 500 MG TAB ONE (08:24)
[2024-06-06] MEDS ORDERED: diphenhydrAMINE 25 MG CAP ONE (08:24)
[2024-06-06] MEDS: Acetaminophen 500 MG TAB PO SCH (08:26)
[2024-06-06] MEDS: diphenhydrAMINE 25 MG CAP PO SCH (08:26)
[2024-06-06 12:48] VITALS: TEMP 98.1
[2024-06-06 12:51] VITALS: BP 110/68
== END 2024-06-06 14:39 | disposition home or self-care (01) ==
LOC: ONC/OP 08:10
PROVIDERS: ATTEND Psychiatry & Neurology Neurology
DX: G70.00 Myasthenia gravis without (acute) exacerbation (principal)
CPT/HCPCS: 96365; 96366; J1459

== ENCOUNTER 2024-07-10 08:25 | Day surgery (SDC) | payer MEDICARE ==
[2024-07-10] MEDS ORDERED: diphenhydrAMINE 25 MG CAP ONE (08:41)
[2024-07-10] MEDS ORDERED: Acetaminophen 500 MG TAB ONE (08:41)
[2024-07-10] MEDS: Acetaminophen 500 MG TAB PO SCH (08:51)
[2024-07-10] MEDS: diphenhydrAMINE 25 MG CAP PO SCH (08:51)
[2024-07-10] MEDS: PRIVIGEN IVPB SCH (09:25)
[2024-07-10 09:35] VITALS: TEMP 97.5
[2024-07-10 13:27] VITALS: BP 114/72
== END 2024-07-10 14:20 | disposition home or self-care (01) ==
LOC: ONC/OP 08:25
PROVIDERS: ATTEND Psychiatry & Neurology Neurology
DX: G70.00 Myasthenia gravis without (acute) exacerbation (principal)
CPT/HCPCS: 96365; 96366; J1459